=== PATIENT | female | born 1990 | race Caucasian/White ===

== ENCOUNTER 2020-02-02 19:48 | Emergency (ER) | payer SELFPAY ==
--- OUTSIDE RECORDS SUMMARY | 2020-02-02 19:52 | XMS REPORT ---
:1990 Author Organization [facility] t Address [address] [place] [address] Care Team Providers Name Role Phone Unavailable Unavailable Unavailable Payers Payer Name Policy Type Policy Number Effective Date Expiration Date S ource Problems This patient has no known problems. Allergies, Adverse Reactions, Alerts Allergy Allergy Status Severity Reaction(s) Onset Inactive Treating Comm ents Source Name Type Date Date Clinician iodine DA Active U 2020-0 [facility] cephalex DA Active U 2020-0 [facility] in 5[facility] No Known DA Active U 2020-0 [facility] All[facility]ie [facility] Medications This patient has no known medications. Procedures This patient has no known procedures. Results Test Description Test Time Test Comments Results Result Comments Source TROPONIN-I 2020-01-27 23:37:00 Test Item Value Reference Range Interpretation Comme nts TROPONIN-I (test code = TROPI) <0.015 ng/mL 0-0.045 N [id number] 20:28:00 Test Item Value Reference Range Interpretation Comments TROPONIN-I (test code = TROPI) <0.015 ng/mL 0-0.045 N [id number] 16:17:00 Test Item Value Reference Range Interpretation Comments TROPONIN-I (test code = TROPI) <0.015 ng/mL 0-0.045 N BASIC METABOLIC [id number] 06:51:00 Test Item Value Reference Range Interpretation Comments SODIUM (test code = 139 mmol/L 136-145 N NA) POTASSIUM (test code 3.6 mmol/L 3.5-5.1 N = K) CHLORIDE (test code = 110.0 mmol/L 98-107 H CL) CARBON DIOXIDE (test 21.0 mmol/L 21-32 N code = CO2) ANION GAP (test code 11.6 10-20 N = GAP) GLUCOSE (test code = 93 mg/dL 74-106 N GLU) BLOOD UREA NITROGEN 6 mg/dL 7-18 L (test code = BUN) GLOMERULAR FILTRATION > 60 mL/min >=60 Estima anne GFR by RATE (test code = using Yadi fied MDRD GFR) formula.Chronic kidney disease is defined as [facility] kidney damageor GFR <60 mL/min/1.73 m2 for >3 months. CREATININE (test code 0.70 mg/dL 0.55-1.02 N Note change in = CREAT) reference range due to change in reagent. BUN/CREATININE RATIO 8.1 10-20 L (test code = BUN/CREA) CALCIUM (test code = 9.1 mg/dL 8.5-10.1 N CA) BASIC METABOLIC [id number] 06:49:00 Test Item Value Reference Range Interpretation Comments SODIUM (test code = NA) 139 mmol/L 136-145 N POTASSIUM (test code = K) 3.6 mmol/L 3.5-5.1 N CHLORIDE (test code = CL) 110.0 mmol/L 98-107 H CARBON DIOXIDE (test code = CO2) mmol/L 21-32 ANION GAP (test code = GAP) 10-20 GLUCOSE (test code = GLU) mg/dL 74-106 BLOOD UREA NITROGEN (test code = mg/dL 7-18 BUN) GLOMERULAR FILTRATION RATE (test mL/min >=60 code = GFR) CREATININE (test code = CREAT) mg/dL 0.55-1.02 BUN/CREATININE RATIO (test code 10-20 = BUN/CREA) CALCIUM (test code = CA) mg/dL 8.5-10.1 CBC W/AUTO [id number] 06:15:00 Test Item Value Reference Range Interpretation Comments WHITE BLOOD CELL (test code = 7.2 K/mm3 4.5-12.5 N WBC) RED BLOOD CELL (test code = 4.21 mill/mm3 3.7-5.2 N RBC) HEMOGLOBIN (test code = HGB) 12.6 gram/dL 11.5-15.5 N HEMATOCRIT (test code = HCT) 37.4 % 36.0-46.0 N MEAN CELL VOLUME (test code = 88.8 fL 80-98 N MCV) MEAN CELL HGB (test code = MCH) 29.9 picogram 27.0-33.0 N MEAN CELL HGB CONCETRATION 33.7 gram/dL 33.0-36.0 N (test code = MCHC) RED CELL DISTRIBUTION WIDTH 13.2 % 11.6-16.2 N (test code = RDW) RED CELL DISTRIBUTION WIDTH SD 42.7 fL 37.0-51.0 N (test code = RDW-SD) PLATELET COUNT (test code = 203 K/mm3 150-450 N PLT) MEAN PLATELET VOLUME (test code 9.9 fL 6.7-11.0 N = MPV) NEUTROPHIL % (test code = NT%) 68.2 % 39.0-69.0 N IMMATURE GRANULOCYTE % (test 0.3 % 0.0-5.0 N code = IG%) LYMPHOCYTE % (test code = LY%) 22.2 % 25.0-55.0 L MONOCYTE % (test code = MO%) 8.2 % 0.0-10.0 N EOSINOPHIL % (test code = EO%) 1.0 % 0.0-5.0 N BASOPHIL % (test code = BA%) 0.1 % 0.0-1.0 N NUCLEATED RBC % (test code = 0.0 % 0-0 N NRBC%) NEUTROPHIL # (test code = NT#) 4.93 K/mm3 1.8-7.7 N IMMATURE GRANULOCYTE # (test 0.02 x10 3/uL 0-0.03 N code = IG#) LYMPHOCYTE # (test code = LY#) 1.60 K/mm3 1.0-5.0 N MONOCYTE # (test code = MO#) 0.59 K/mm3 0-0.8 N EOSINOPHIL # (test code = EO#) 0.07 K/mm3 0.0-0.5 N BASOPHIL # (test code = BA#) 0.01 K/mm3 0.0-0.2 N NUCLEATED RBC # (test code = 0.00 K/mm3 0.0-0.1 N NRBC#) CBC W/AUTO [id number] 05:59:00 Test Item Value Reference Range Interpretation Comments WHITE BLOOD CELL (test code = K/mm3 4.5-12.5 WBC) RED BLOOD CELL (test code = RBC) mill/mm3 3.7-5.2 HEMOGLOBIN (test code = HGB) 12.6 gram/dL 11.5-15.5 N HEMATOCRIT (test code = HCT) 37.4 % 36.0-46.0 N MEAN CELL VOLUME (test code = fL 80-98 MCV) MEAN CELL HGB (test code = MCH) picogram 27.0-33.0 MEAN CELL HGB CONCETRATION (test gram/dL 33.0-36.0 code = MCHC) RED CELL DISTRIBUTION WIDTH % 11.6-16.2 (test code = RDW) RED CELL DISTRIBUTION WIDTH SD fL 37.0-51.0 (test code = RDW-SD) PLATELET COUNT (test code = PLT) K/mm3 150-450 MEAN PLATELET VOLUME (test code fL 6.7-11.0 = MPV) NEUTROPHIL % (test code = NT%) % 39.0-69.0 IMMATURE GRANULOCYTE % (test % 0.0-5.0 code = IG%) LYMPHOCYTE % (test code = LY%) % 25.0-55.0 MONOCYTE % (test code = MO%) % 0.0-10.0 EOSINOPHIL % (test code = EO%) % 0.0-5.0 BASOPHIL % (test code = BA%) % 0.0-1.0 NEUTROPHIL # (test code = NT#) K/mm3 1.8-7.7 LYMPHOCYTE # (test code = LY#) K/mm3 1.0-5.0 MONOCYTE # (test code = MO#) K/mm3 0-0.8 EOSINOPHIL # (test code = EO#) K/mm3 0.0-0.5 BASOPHIL # (test code = BA#) K/mm3 0.0-0.2 - XR WRIST 2 VIEWS [id number] 16:30:00 FAX: Luis Daniel Pineda MD [phone] [place]: B St: ADM FAX: Antonino Schofield NP [phone] Name: ALEX MADRIGAL [facility] : 1990 Age/S: 29/F [address] Unit #: [id number] Loc: V.2065 [place] [address] Phys: Antonino Schofield NP Acct: Mary [id number] Dis Date: Status: ADM IN PHONE #: [phone] Exam Date: 01/26/2020 1551 FAX #: [phone] Reason: PAIN INRIGHT HAND/WRIST EXAMS: CPT CODE: [id number] XR WRIST [address] [place] [address] EXAM: Right wrist, 2 views and right hand, 2 views; INFORMATION: Pain; FINDINGS: Normal shape and structure of the imaged bones; no evidence of fracture or dislocation; no soft tissue abnormalities. IMPRESSION: No evidence of acute osseous trauma or other pathological changes. No radiopaque foreign body. Location code: [facility] at 1630 Reported and signed by: Oswaldo Mensah M.D. CC: Luis Daniel Pineda MD; Antonino Schofield NP Technologist: Enrique Dumont, RT(R; Carolina Lopez RT(R) Trnpard Date/Time/By: 01/26/2020 (163) : By: ChristGRW Orig Print D/T: S: 01/26/2020 (4083) PAGE 1 Signed Report- XR HAND 2 V [id number] 16:30:00 FAX: Luis Daniel Pineda MD [phone] [place]: St: [facility] FAX: Antonino Schofield NP [phone] Name: ALEX MADRIGAL [facility] : 1990 Age/S: 29/F [address] Unit #: [id number] Loc: V.2065 [place] [address] Phys: Antonino Schofield ENDOCRINOLOGY SPECIALIST Acct: V [id number] Dis Date: Status: ADM IN PHONE #: [phone] Exam Date: 01/26/2020 1547 FAX #: [phone] Reason: PAIN INRIGHT HAND/WRIST EXAMS: CPT CODE: [id number] XR HAND 2 [place] [address] EXAM: Right wrist, 2 views and right hand, 2 views; INFORMATION: Pain; FINDINGS: Normal shape and structure of the imaged bones; no evidence of fracture or dislocation; no soft tissue abnormalities. IMPRESSION: No evidence of acute osseous trauma or other pathological changes. No radiopaque foreign body. Location code: [facility] at 1630 Reported and signed by: Oswaldo Mensah M.D. CC: Luis Daniel Pineda MD; Antonino Schofield NP Technologist: Enrique Dumont, RT(R; Carolina Lopez RT(R) Trnscrd Date/Time/By: 01/26/2020 (602) : By: ChristGRW Orig Print D/T: S: 01/26/2020 (4508) PAGE 1 Signed [id number] 16:08:00 Test Item Value Reference Interpretation Comments Range LEVETIRACETAM 47.9 ug/mL 10.0-40.0 A This test was developed and (test code = its performance LEVTAM) characteristics determined by [facility]. It has not been cleared orappro óscar by the Food and Drug Administration. Performed At: [facility] [place] [id number] [facility] [place] [id number] ra Arnie MARTIN Ph:[phone] BASIC METABOLIC [id number] 07:52:00 Test Item Value Reference Range Interpretation Comments SODIUM (test code = NA) 140 mmol/L 136-145 N POTASSIUM (test code = K) 3.6 mmol/L 3.5-5.1 N CHLORIDE (test code = CL) 110.0 mmol/L 98-107 H CARBON DIOXIDE (test code = CO2) mmol/L 21-32 ANION GAP (test code = GAP) 10-20 GLUCOSE (test code = GLU) mg/dL 74-106 BLOOD UREA NITROGEN (test code = mg/dL 7-18 BUN) GLOMERULAR FILTRATION RATE (test mL/min >=60 code = GFR) CREATININE (test code = CREAT) mg/dL 0.55-1.02 BUN/CREATININE RATIO (test code 10-20 = BUN/CREA) CALCIUM (test code = CA) mg/dL 8.5-10.1 BASIC METABOLIC [id number] 07:52:00 Test Item Value Reference Range Interpretation Comments SODIUM (test code = 140 mmol/L 136-145 N NA) POTASSIUM (test code 3.6 mmol/L 3.5-5.1 N = K) CHLORIDE (test code = 110.0 mmol/L 98-107 H CL) CARBON DIOXIDE (test 23.0 mmol/L 21-32 N code = CO2) ANION GAP (test code 10.6 10-20 N = GAP) GLUCOSE (test code = 82 mg/dL 74-106 N GLU) BLOOD UREA NITROGEN 12 mg/dL 7-18 N (test code = BUN) GLOMERULAR FILTRATION > 60 mL/min >=60 Estima anne GFR by RATE (test code = using Yadi fied MDRD GFR) formula.Chronic kidney disease is defined as [facility] kidney damageor GFR <60 mL/min/1.73 m2 for >3 months. CREATININE (test code 0.90 mg/dL 0.55-1.02 N Note change in = CREAT) reference range due to change in reagent. BUN/CREATININE RATIO 13.9 10-20 N (test code = BUN/CREA) CALCIUM (test code = 9.0 mg/dL 8.5-10.1 N CA) CBC W/AUTO [id number] 07:35:00 Test Item Value Reference Range Interpretation Comments WHITE BLOOD CELL (test code = 7.9 K/mm3 4.5-12.5 N WBC) RED BLOOD CELL (test code = 4.13 mill/mm3 3.7-5.2 N RBC) HEMOGLOBIN (test code = HGB) 12.3 gram/dL 11.5-15.5 N HEMATOCRIT (test code = HCT) 37.3 % 36.0-46.0 N MEAN CELL VOLUME (test code = 90.3 fL 80-98 N MCV) MEAN CELL HGB (test code = MCH) 29.8 picogram 27.0-33.0 N MEAN CELL HGB CONCETRATION 33.0 gram/dL 33.0-36.0 N (test code = MCHC) RED CELL DISTRIBUTION WIDTH 13.1 % 11.6-16.2 N (test code = RDW) RED CELL DISTRIBUTION WIDTH SD 42.8 fL 37.0-51.0 N (test code = RDW-SD) PLATELET COUNT (test code = 210 K/mm3 150-450 N PLT) MEAN PLATELET VOLUME (test code 10.6 fL 6.7-11.0 N = MPV) NEUTROPHIL % (test code = NT%) 52.4 % 39.0-69.0 N IMMATURE GRANULOCYTE % (test 0.1 % 0.0-5.0 N code = IG%) LYMPHOCYTE % (test code = LY%) 37.3 % 25.0-55.0 N MONOCYTE % (test code = MO%) 8.5 % 0.0-10.0 N EOSINOPHIL % (test code = EO%) 1.4 % 0.0-5.0 N BASOPHIL % (test code = BA%) 0.3 % 0.0-1.0 N NUCLEATED RBC % (test code = 0.0 % 0-0 N NRBC%) NEUTROPHIL # (test code = NT#) 4.14 K/mm3 1.8-7.7 N IMMATURE GRANULOCYTE # (test 0.01 x10 3/uL 0-0.03 N code = IG#) LYMPHOCYTE # (test code = LY#) 2.95 K/mm3 1.0-5.0 N MONOCYTE # (test code = MO#) 0.67 K/mm3 0-0.8 N EOSINOPHIL # (test code = EO#) 0.11 K/mm3 0.0-0.5 N BASOPHIL # (test code = BA#) 0.02 K/mm3 0.0-0.2 N NUCLEATED RBC # (test code = 0.00 K/mm3 0.0-0.1 N NRBC#) MANUAL DIFF REQUIRED (test code NO = MDIFF) BASIC METABOLIC [id number] 05:23:00 Test Item Value Reference Range Interpretation Comments SODIUM (test code = 141 mmol/L 136-145 N NA) POTASSIUM (test code 3.8 mmol/L 3.5-5.1 N = K) CHLORIDE (test code = 108.0 mmol/L 98-107 H CL) CARBON DIOXIDE (test 25.0 mmol/L 21-32 N code = CO2) ANION GAP (test code 11.8 10-20 N = GAP) GLUCOSE (test code = 72 mg/dL 74-106 L GLU) BLOOD UREA NITROGEN 10 mg/dL 7-18 N (test code = BUN) GLOMERULAR FILTRATION > 60 mL/min >=60 Estima anne GFR by RATE (test code = using Yadi fied MDRD GFR) formula.Chronic kidney disease is defined as ei er kidney damageor GFR <60 mL/min/1.73 m2 for >3 months. CREATININE (test code 0.80 mg/dL 0.55-1.02 N Note change in = CREAT) reference range due to change in reagent. BUN/CREATININE RATIO 12.5 10-20 N (test code = BUN/CREA) CALCIUM (test code = 9.4 mg/dL 8.5-10.1 N CA) BASIC METABOLIC [id number] 05:15:00 Test Item Value Reference Range Interpretation Comments SODIUM (test code = NA) 141 mmol/L 136-145 N POTASSIUM (test code = K) 3.8 mmol/L 3.5-5.1 N CHLORIDE (test code = CL) 108.0 mmol/L 98-107 H CARBON DIOXIDE (test code = CO2) mmol/L 21-32 ANION GAP (test code = GAP) 10-20 GLUCOSE (test code = GLU) mg/dL 74-106 BLOOD UREA NITROGEN (test code = mg/dL 7-18 BUN) GLOMERULAR FILTRATION RATE (test mL/min >=60 code = GFR) CREATININE (test code = CREAT) mg/dL 0.55-1.02 BUN/CREATININE RATIO (test code 10-20 = BUN/CREA) CALCIUM (test code = CA) mg/dL 8.5-10.1 CBC W/AUTO [id number] 04:52:00 Test Item Value Reference Range Interpretation Comments WHITE BLOOD CELL (test code = 6.5 K/mm3 4.5-12.5 N WBC) RED BLOOD CELL (test code = 4.45 mill/mm3 3.7-5.2 N RBC) HEMOGLOBIN (test code = HGB) 13.3 gram/dL 11.5-15.5 N HEMATOCRIT (test code = HCT) 40.8 % 36.0-46.0 N MEAN CELL VOLUME (test code = 91.7 fL 80-98 N MCV) MEAN CELL HGB (test code = MCH) 29.9 picogram 27.0-33.0 N MEAN CELL HGB CONCETRATION 32.6 gram/dL 33.0-36.0 L (test code = MCHC) RED CELL DISTRIBUTION WIDTH 13.2 % 11.6-16.2 N (test code = RDW) RED CELL DISTRIBUTION WIDTH SD 44.8 fL 37.0-51.0 N (test code = RDW-SD) PLATELET COUNT (test code = 214 K/mm3 150-450 N PLT) MEAN PLATELET VOLUME (test code 9.9 fL 6.7-11.0 N = MPV) NEUTROPHIL % (test code = NT%) 47.0 % 39.0-69.0 N IMMATURE GRANULOCYTE % (test 0.2 % 0.0-5.0 N code = IG%) LYMPHOCYTE % (test code = LY%) 42.6 % 25.0-55.0 N MONOCYTE % (test code = MO%) 8.3 % 0.0-10.0 N EOSINOPHIL % (test code = EO%) 1.4 % 0.0-5.0 N BASOPHIL % (test code = BA%) 0.5 % 0.0-1.0 N NUCLEATED RBC % (test code = 0.0 % 0-0 N NRBC%) NEUTROPHIL # (test code = NT#) 3.05 K/mm3 1.8-7.7 N IMMATURE GRANULOCYTE # (test 0.01 x10 3/uL 0-0.03 N code = IG#) LYMPHOCYTE # (test code = LY#) 2.76 K/mm3 1.0-5.0 N MONOCYTE # (test code = MO#) 0.54 K/mm3 0-0.8 N EOSINOPHIL # (test code = EO#) 0.09 K/mm3 0.0-0.5 N BASOPHIL # (test code = BA#) 0.03 K/mm3 0.0-0.2 N NUCLEATED RBC # (test code = 0.00 K/mm3 0.0-0.1 N NRBC#) MANUAL DIFF REQUIRED (test code NO = MDIFF) CBC W/AUTO [id number] 04:42:00 Test Item Value Reference Range Interpretation Comments WHITE BLOOD CELL (test code = K/mm3 4.5-12.5 WBC) RED BLOOD CELL (test code = RBC) mill/mm3 3.7-5.2 HEMOGLOBIN (test code = HGB) 13.3 gram/dL 11.5-15.5 N HEMATOCRIT (test code = HCT) 40.8 % 36.0-46.0 N MEAN CELL VOLUME (test code = fL 80-98 MCV) MEAN CELL HGB (test code = MCH) picogram 27.0-33.0 MEAN CELL HGB CONCETRATION (test gram/dL 33.0-36.0 code = MCHC) RED CELL DISTRIBUTION WIDTH % 11.6-16.2 (test code = RDW) RED CELL DISTRIBUTION WIDTH SD fL 37.0-51.0 (test code = RDW-SD) PLATELET COUNT (test code = PLT) K/mm3 150-450 MEAN PLATELET VOLUME (test code fL 6.7-11.0 = MPV) NEUTROPHIL % (test code = NT%) % 39.0-69.0 IMMATURE GRANULOCYTE % (test % 0.0-5.0 code = IG%) LYMPHOCYTE % (test code = LY%) % 25.0-55.0 MONOCYTE % (test code = MO%) % 0.0-10.0 EOSINOPHIL % (test code = EO%) % 0.0-5.0 BASOPHIL % (test code = BA%) % 0.0-1.0 NEUTROPHIL # (test code = NT#) K/mm3 1.8-7.7 LYMPHOCYTE # (test code = LY#) K/mm3 1.0-5.0 MONOCYTE # (test code = MO#) K/mm3 0-0.8 EOSINOPHIL # (test code = EO#) K/mm3 0.0-0.5 BASOPHIL # (test code = BA#) K/mm3 0.0-0.2 - CT HEAD/BRAIN W/O [id number] 17:28:00 Name: ALEX MADRIGAL [facility] : 1990 Age/S: 29 / F [address] Unit #: [id number] Loc: [place] [address] Phys: Antonino Schofield ENDOCRINOLOGY SPECIALIST Acct: [id number] Dis Date: Status: ADM IN PHONE #: [phone] Exam Date: 01/24/2020 165 FAX #: [phone] Reason: S/P ROLLED OUT OF BED EXAMS: CPTCODE: [id number] CT HEAD/BRAIN W/O CONT [id number] EXAM: CT ofthe head without contrast; INFORMATION: Seizure; status post rolling out of bed; TECHNIQUE: CT dose reduction protocol; 2.5 mm axial scans; IMPRESSION: 1. No evidence of intracranial hemorrhage, acute territorial infarction, masslesions or midline shift. 2. No evidence of acute osseous trauma. 3. No change compared with yesterday's study. Location code: [facility] ElectronicallySigned by Linette Mensah on 01/24/2020 at 1728 Reported and signed by: Oswaldo Mensah M.D. CC: Luis Daniel Pineda MD; Antonino Schofield NP Technologist:Willi Briceno RT(R)(CT); . CTDI: DLP: Trnscb Da te/Time: 01/24/2020 (1728) [email or web address] Orig Print D/T: S: 01/24/2020 (8315) PAGE 1 Signed ReportDRUGS OF ABUSE SCREEN [id number] 13:25:00 Test Item Value Reference Range Interpretation Comments UA PH DIPSTICK (test 6.0 5.0-8.0 code = MAX) URN COCAINE (test NEGATIVE <300 ng/mL code = COCAURN) URN CANNABINOIDS POSITIVE <50 ng/mL A This test p rovides only a (test code = preliminary ame t result. CANNABURN) A morespecific alternate chemical method must be used in order t oobtain a confirmed darlin tical result. Gas chromatography/ mass spectrometry (G C/MS) is thepreferred co nfirmatory method. Other chemical confirmationmet hods are available. Cli nical consideration a nd professional ju dgment should be appli ed to any drug of abusete st result, particularly wh en preliminary pos itive resultsare used.Unconfirme d screening resul ts must not be used fornon-medical purposes (e.g., employme nt testing, legalt esting). URN AMPHETAMINE (test NEGATIVE <1000 ng/mL code = AMPHETURN) URN BARBITURATE (test POSITIVE <200 ng/mL A This t est provides only a code = BARBITURN) preliminar y test result. A morespecific alternate chemical method must be used in order t oobtain a confirmed darlin tical result. Gas chromatography/ mass spectrometry (G C/MS) is thepreferred co nfirmatory method. Other chemical confirmationmet hods are available. Cli nical consideration a nd professional ju dgment should be appli ed to any drug of abusete st result, particularly wh en preliminary pos itive resultsare used.Unconfirme d screening resul ts must not be used fornon-medical purposes (e.g., employme nt testing, legalt esting). URN BENZODIAZEPINE POSITIVE <200 ng/mL A This test provides only a (test code = preliminary ame t result. BENZOURN) A morespecific alternate chemical method must be used in order t oobtain a confirmed darlin tical result. Gas chromatography/ mass spectrometry (G C/MS) is thepreferred co nfirmatory method. Other chemical confirmationmet hods are available. Cli nical consideration a nd professional ju dgment should be appli ed to any drug of abusete st result, particularly wh en preliminary pos itive resultsare used.Unconfirme d screening resul ts must not be used fornon-medical purposes (e.g., employme nt testing, legalt esting). URN OPIATES (test NEGATIVE <300 ng/mL code = OPIATURN) URN PHENCYCLIDINE NEGATIVE <25 ng/mL (PCP) (test code = PHENCURN) URN METHADONE (test NEGATIVE <300 ng/mL code = METHAURN) DRUGS OF ABUSE SCREEN [id number] 13:00:00 Test Item Value Reference Range Interpretation Comments UA PH DIPSTICK (test code = MAX) 6.0 5.0-8.0 URN COCAINE (test code = COCAURN) <300 ng/mL URN CANNABINOIDS (test code = <50 ng/mL CANNABURN) URN AMPHETAMINE (test code = AMPHETURN) <1000 ng/mL URN BARBITURATE (test code = BARBITURN) <200 ng/mL URN BENZODIAZEPINE (test code = <200 ng/mL BENZOURN) URN OPIATES (test code = OPIATURN) <300 ng/mL URN PHENCYCLIDINE (PCP) (test code = <25 ng/mL PHENCURN) URN METHADONE (test code = METHAURN) <300 ng/mL BASIC METABOLIC [id number] 07:55:00 Test Item Value Reference Range Interpretation Comments SODIUM (test code = 140 mmol/L 136-145 N NA) POTASSIUM (test code 3.8 mmol/L 3.5-5.1 N = K) CHLORIDE (test code = 107.0 mmol/L 98-107 N CL) CARBON DIOXIDE (test 25.0 mmol/L 21-32 N code = CO2) ANION GAP (test code 11.8 10-20 N = GAP) GLUCOSE (test code = 76 mg/dL 74-106 N GLU) BLOOD UREA NITROGEN 9 mg/dL 7-18 N (test code = BUN) GLOMERULAR FILTRATION > 60 mL/min >=60 Estima anne GFR by RATE (test code = using Yadi fied MDRD GFR) formula.Chronic kidney disease is defined as [facility] kidney damageor GFR <60 mL/min/1.73 m2 for >3 months. CREATININE (test code 0.80 mg/dL 0.55-1.02 N Note change in = CREAT) reference range due to change in reagent. BUN/CREATININE RATIO 11.3 10-20 N (test code = BUN/CREA) CALCIUM (test code = 9.2 mg/dL 8.5-10.1 N CA) UR HCG [id number] 07:30:00 Test Item Value Reference Range Interpretation Comments UR HCG QUAL (test NEGATIVE This HCGQL test is NOT code = HCGQLU) applicable fo r MALE patients.Check with nurse about probable order error.If Tumor Marker Test needed, nu rse should order test "HCG TU"(Test #[id number])---- - CBC W/AUTO [id number] 07:11:00 Test Item Value Reference Range Interpretation Comments WHITE BLOOD CELL (test code = 7.6 K/mm3 4.5-12.5 N WBC) RED BLOOD CELL (test code = 4.21 mill/mm3 3.7-5.2 N RBC) HEMOGLOBIN (test code = HGB) 12.6 gram/dL 11.5-15.5 N HEMATOCRIT (test code = HCT) 38.3 % 36.0-46.0 N MEAN CELL VOLUME (test code = 91.0 fL 80-98 N MCV) MEAN CELL HGB (test code = MCH) 29.9 picogram 27.0-33.0 N MEAN CELL HGB CONCETRATION 32.9 gram/dL 33.0-36.0 L (test code = MCHC) RED CELL DISTRIBUTION WIDTH 13.2 % 11.6-16.2 N (test code = RDW) RED CELL DISTRIBUTION WIDTH SD 43.6 fL 37.0-51.0 N (test code = RDW-SD) PLATELET COUNT (test code = 205 K/mm3 150-450 N PLT) MEAN PLATELET VOLUME (test code 9.8 fL 6.7-11.0 N = MPV) NEUTROPHIL % (test code = NT%) 55.9 % 39.0-69.0 N IMMATURE GRANULOCYTE % (test 0.3 % 0.0-5.0 N code = IG%) LYMPHOCYTE % (test code = LY%) 33.6 % 25.0-55.0 N MONOCYTE % (test code = MO%) 8.6 % 0.0-10.0 N EOSINOPHIL % (test code = EO%) 1.1 % 0.0-5.0 N BASOPHIL % (test code = BA%) 0.5 % 0.0-1.0 N NUCLEATED RBC % (test code = 0.0 % 0-0 N NRBC%) NEUTROPHIL # (test code = NT#) 4.24 K/mm3 1.8-7.7 N IMMATURE GRANULOCYTE # (test 0.02 x10 3/uL 0-0.03 N code = IG#) LYMPHOCYTE # (test code = LY#) 2.55 K/mm3 1.0-5.0 N MONOCYTE # (test code = MO#) 0.65 K/mm3 0-0.8 N EOSINOPHIL # (test code = EO#) 0.08 K/mm3 0.0-0.5 N BASOPHIL # (test code = BA#) 0.04 K/mm3 0.0-0.2 N NUCLEATED RBC # (test code = 0.00 K/mm3 0.0-0.1 N NRBC#) AB [id number] 02:27:00 Test Item Value Reference Range Interpretation Comments AB TREPONEMA (test code = Nonreactive Index NonReactive TREPAB) [id number] 02:24:00 Test Item Value Reference Range Interpretation Comments PHOSPHORUS (test code = PHOS) 2.8 mg/dL 2.5-4.9 N [id number] 02:24:00 Test Item Value Reference Range Interpretation Comments MAGNESIUM (test code = MAG) 2.1 mg/dL 1.8-2.4 N VITAMIN [id number] 02:24:00 Test Item Value Reference Range Interpretation Comments VITAMIN B12 (test code = VITB12) 274 pg/mL 193-986 N FOLIC [id number] 02:24:00 Test Item Value Reference Range Interpretation Comments FOLIC ACID (test code = FOL) 18.3 ng/mL 3.10-17.50 H [id number] 02:24:00 Test Item Value Reference Range Interpretation Comments ALCOHOL (test code < 3 mg/dL 0.0-3.0 N --------- --------INTERPRE = ALC) TIVE DATA NOTE: POSITIVE SCREEN ING RESULTS SHOULD BE CONSIDERED PRESUMPTIVE.WHE N COLLECTED FOR M EDICAL PURPOSES ONLY. SPECIMEN WILL NOTBE VALENTÍN ECTED BY CHAIN OF CUSTOD Y.IF A CONFIRMATION OF POSITIVE RESULTS IS DONAVAN RED, ACONFIRMATION T EST MUST BE REQUESTED BY THE PHYSICIAN AT AN ADDITIONAL CHARGE TO [facility]. [id number] 02:18:00 Test Item Value Reference Range Interpretation Comments PHOSPHORUS (test code = PHOS) 2.8 mg/dL 2.5-4.9 N [id number] 02:18:00 Test Item Value Reference Range Interpretation Comments MAGNESIUM (test code = MAG) 2.1 mg/dL 1.8-2.4 N VITAMIN [id number] 02:18:00 Test Item Value Reference Range Interpretation Comments VITAMIN B12 (test code = VITB12) pg/mL 193-986 FOLIC [id number] 02:18:00 Test Item Value Reference Range Interpretation Comments FOLIC ACID (test code = FOL) 18.3 ng/mL 3.10-17.50 H [id number] 02:18:00 Test Item Value Reference Range Interpretation Comments ALCOHOL (test code = ALC) mg/dL 0-3 [id number] 02:00:00 Test Item Value Reference Range Interpretation Comments AMMONIA (test code = AMM) < 10 umol/L 11-32 L PROTHROMBIN [id number] 01:43:00 Test Item Value Reference Range Interpretation Comments PROTHROMBIN TIME 13.1 seconds 9.0-14.0 N PATIENT (test code = PTP) INTERNATIONAL NORMAL 1.1 0.8-1.2 N The the rapeutic range RATIO (test code = for oral INR) anticoagulant t herapy formost indicat ions is an internati onal normalized rati o (INR)of between 2.0 and 3.0. The recommended therapeutic INR range for various cli nical situations is l isted below: Clinical Situat ion INR range Pulmonary embol ism treatment (2.0-3.0)Venou s thrombosis treatmentVenous thrombosis prophylaxis (hi gh risk surgery)Prevent ion of systemic emboli sm from: A cute myocardial infa rction Valvula r heart disease Atrial fibrilla tion Mechanical pros thetic heart valves (2.5-3.5) IS PATIENT ON ANTICOAGULANTS? N- CT HEAD/BRAIN W/O [id number] 21:58:00 Name: ALEX MADRIGAL [facility] : 1990 Age/S: 29 / F [address] [facility] Unit #: [id number] Loc: [place] [address] Phys: Haroon Moise MD Acct: [id number] Dis Date: Status: REG ER PHONE #: [phone] Exam Date: 01/23/20202155 FAX #: [phone] Reason: seizure EXAMS: CPTCODE: [id number] CT HEAD/BRAIN W/O CONT [id number] HEAD WITHOUT CONTRAST HISTORY: seizure TECHNIQUE: Axial CT images from the skull base to the vertex without intravenous contrast. One or more ofthe following dose reduction techniques were used: Automated exposure control, adjustment of the mA and/or kV according to patient size, and/or iterative reconstruction. COMPARISON: None FINDINGS: No abnormal brain parenchymal density. No evidence of acute infarction, intracranial hemorrhage, mass or mass effect, or abnormal extra-axial fluid collection. The ventricles are normal in size, shape and position. The density in the larger dural sinuses is grossly normal. The osseous structures and orbits have no significant abnormalities. The visualized paranasal sinuses and mastoid air cells are predominantly clear. IMPRESSION: No acute intracranial abnormality. at 2158 Reported and signed by: Diaz Clemente MD CC: Haroon Moise MD Technologist:Hesham Vu, RT(R)(CT) CTDI: DLP: Trnscb Date/Time: 01/23/2020 (2157) [id number] Orig Print D/T: S: 01/23/2020 (2201) PAGE 1 Signed ReportBASIC METABOLIC [id number] 21:26:00 Test Item Value Reference Range Interpretation Comments SODIUM (test code = NA) 139 mmol/L 136-145 N POTASSIUM (test code = K) 3.8 mmol/L 3.5-5.1 N CHLORIDE (test code = CL) 106.0 mmol/L 98-107 N CARBON DIOXIDE (test code = CO2) mmol/L 21-32 ANION GAP (test code = GAP) 10-20 GLUCOSE (test code = GLU) mg/dL 74-106 BLOOD UREA NITROGEN (test code = mg/dL 7-18 BUN) GLOMERULAR FILTRATION RATE (test mL/min >=60 code = GFR) CREATININE (test code = CREAT) mg/dL 0.55-1.02 BUN/CREATININE RATIO (test code 10-20 = BUN/CREA) CALCIUM (test code = CA) mg/dL 8.5-10.1 HCG SERUM [id number] 21:26:00 Test Item Value Reference Range Interpretation Comments HCG SERUM QUAL (test NEGATIVE NEGATIVE This HC GQL test is NOT code = HCGQL) applicable for MALE patients.Check with nurse about probable order error.If Tumor Marker Test needed, nu rse should order test "HCG TU"(Test #550.28192)---- - BASIC METABOLIC [id number] 21:26:00 Test Item Value Reference Range Interpretation Comments SODIUM (test code = 139 mmol/L 136-145 N NA) POTASSIUM (test code 3.8 mmol/L 3.5-5.1 N = K) CHLORIDE (test code = 106.0 mmol/L 98-107 N CL) CARBON DIOXIDE (test 25.0 mmol/L 21-32 N code = CO2) ANION GAP (test code 11.8 10-20 N = GAP) GLUCOSE (test code = 84 mg/dL 74-106 N GLU) BLOOD UREA NITROGEN 10 mg/dL 7-18 N (test code = BUN) GLOMERULAR FILTRATION > 60 mL/min >=60 Estima anne GFR by RATE (test code = using Yadi fied MDRD GFR) formula.Chronic kidney disease is defined as eith er kidney damageor GFR <60 mL/min/1.73 m2 for >3 months. CREATININE (test code 0.90 mg/dL 0.55-1.02 N Note change in = CREAT) reference range due to change in reagent. BUN/CREATININE RATIO 11.1 10-20 N (test code = BUN/CREA) CALCIUM (test code = 9.3 mg/dL 8.5-10.1 N CA) HCG SERUM [id number] 21:26:00 Test Item Value Reference Range Interpretation Comments HCG SERUM QUAL (test NEGATIVE NEGATIVE This HC GQL test is NOT code = HCGQL) applicable for MALE patients.Check with nurse about probable order error.If Tumor Marker Test needed, nu rse should order test "HCG TU"(Test #550.69011)---- - BASIC METABOLIC [id number] 21:25:00 Test Item Value Reference Range Interpretation Comments SODIUM (test code = NA) 139 mmol/L 136-145 N POTASSIUM (test code = K) 3.8 mmol/L 3.5-5.1 N CHLORIDE (test code = CL) 106.0 mmol/L 98-107 N CARBON DIOXIDE (test code = CO2) mmol/L 21-32 ANION GAP (test code = GAP) 10-20 GLUCOSE (test code = GLU) mg/dL 74-106 BLOOD UREA NITROGEN (test code = mg/dL 7-18 BUN) GLOMERULAR FILTRATION RATE (test mL/min >=60 code = GFR) CREATININE (test code = CREAT) mg/dL 0.55-1.02 BUN/CREATININE RATIO (test code 10-20 = BUN/CREA) CALCIUM (test code = CA) mg/dL 8.5-10.1 HCG SERUM [id number] 21:25:00 Test Item Value Reference Range Interpretation Comments HCG SERUM QUAL (test code = HCGQL) NEGATIVE CBC W/O [id number] 21:17:00 Test Item Value Reference Range Interpretation Comments WHITE BLOOD CELL (test code = K/mm3 4.5-12.5 WBC) RED BLOOD CELL (test code = RBC) mill/mm3 3.7-5.2 HEMOGLOBIN (test code = HGB) 12.6 gram/dL 11.5-15.5 N HEMATOCRIT (test code = HCT) 38.2 % 36.0-46.0 N MEAN CELL VOLUME (test code = fL 80-98 MCV) MEAN CELL HGB (test code = MCH) picogram 27.0-33.0 MEAN CELL HGB CONCETRATION (test gram/dL 33.0-36.0 code = MCHC) RED CELL DISTRIBUTION WIDTH % 11.6-16.2 (test code = RDW) PLATELET COUNT (test code = PLT) K/mm3 150-450 MEAN PLATELET VOLUME (test code fL 6.7-11.0 = MPV) CBC W/O [id number] 21:17:00 Test Item Value Reference Range Interpretation Comments WHITE BLOOD CELL (test code = 9.1 K/mm3 4.5-12.5 N WBC) RED BLOOD CELL (test code = 4.25 mill/mm3 3.7-5.2 N RBC) HEMOGLOBIN (test code = HGB) 12.6 gram/dL 11.5-15.5 N HEMATOCRIT (test code = HCT) 38.2 % 36.0-46.0 N MEAN CELL VOLUME (test code = 89.9 fL 80-98 N MCV) MEAN CELL HGB (test code = MCH) 29.6 picogram 27.0-33.0 N MEAN CELL HGB CONCETRATION 33.0 gram/dL 33.0-36.0 N (test code = MCHC) RED CELL DISTRIBUTION WIDTH 13.2 % 11.6-16.2 N (test code = RDW) PLATELET COUNT (test code = 235 K/mm3 150-450 N PLT) MEAN PLATELET VOLUME (test code 9.7 fL 6.7-11.0 N = MPV) BASIC METABOLIC [id number] 21:38:00 Test Item Value Reference Range Interpretation Comments SODIUM (test code = 138 mmol/L 136-145 N NA) POTASSIUM (test code 3.9 mmol/L 3.5-5.1 N = K) CHLORIDE (test code = 105.0 mmol/L 98-107 N CL) CARBON DIOXIDE (test 26.0 mmol/L 21-32 N code = CO2) ANION GAP (test code 10.9 10-20 N = GAP) GLUCOSE (test code = 86 mg/dL 74-106 N GLU) BLOOD UREA NITROGEN 14 mg/dL 7-18 N (test code = BUN) GLOMERULAR FILTRATION > 60 mL/min >=60 Estima anne GFR by RATE (test code = using Yadi fied MDRD GFR) formula.Chronic kidney disease is defined as eith er kidney damageor GFR <60 mL/min/1.73 m2 for >3 months. CREATININE (test code 1.00 mg/dL 0.55-1.02 N Note change in = CREAT) reference range due to change in reagent. BUN/CREATININE RATIO 14.0 10-20 N (test code = BUN/CREA) CALCIUM (test code = 9.6 mg/dL 8.5-10.1 N CA) HEPATIC FUNCTION [id number] 21:38:00 Test Item Value Reference Range Interpretation Comments TOTAL PROTEIN (test 8.4 gram/dL 6.4-8.2 H code = PROT) ALBUMIN (test code = 4.1 g/dL 3.4-5.0 N ALB) GLOBULIN (test code = 4.3 gram/dL 2.7-4.2 H GLOB) ALBUMIN/GLOBULIN RATIO 1.0 0.75-1.50 N (test code = A/G) BILIRUBIN TOTAL (test 0.70 mg/dL 0.0-1.0 N code = BILT) BILIRUBIN DIRECT (test 0.20 mg/dL 0.0-0.20 N code = BILD) SGOT/AST (test code = 24 IUnit/L 15-37 N AST) SGPT/ALT (test code = 48 IUnit/L 12-78 N ALT) ALKALINE PHOSPHATASE 88 IUnit/L 45-117 N Note change in TOTAL (test code = reference range due ALKP) to change in reagent. [id number] 21:38:00 Test Item Value Reference Range Interpretation Comments LIPASE (test code = LIP) 140 U/L 73.0-393.0 N HCG SERUM [id number] 21:38:00 Test Item Value Reference Range Interpretation Comments HCG SERUM QUAL (test NEGATIVE NEGATIVE This HC GQL test is NOT code = HCGQL) applicable for MALE patients.Check with nurse about probable order error.If Tumor Marker Test needed, nu rse should order test "HCG TU"(Test #550.05350)---- - [id number] 21:38:00 Test Item Value Reference Range Interpretation Comments ALCOHOL (test code < 3 mg/dL 0.0-3.0 N --------- --------INTERPRE = ALC) TIVE DATA NOTE: POSITIVE SCREEN ING RESULTS SHOULD BE CONSIDERED PRESUMPTIVE.WHE N COLLECTED FOR M EDICAL PURPOSES ONLY. SPECIMEN WILL NOTBE VALENTÍN ECTED BY CHAIN OF CUSTOD Y.IF A CONFIRMATION OF POSITIVE RESULTS IS DONAVAN RED, ACONFIRMATION T EST MUST BE REQUESTED BY THE PHYSICIAN AT AN ADDITIONAL [facility] BASIC METABOLIC [id number] 21:35:00 Test Item Value Reference Range Interpretation Comments SODIUM (test code = NA) 138 mmol/L 136-145 N POTASSIUM (test code = K) 3.9 mmol/L 3.5-5.1 N CHLORIDE (test code = CL) 105.0 mmol/L 98-107 N CARBON DIOXIDE (test code = CO2) mmol/L 21-32 ANION GAP (test code = GAP) 10-20 GLUCOSE (test code = GLU) mg/dL 74-106 BLOOD UREA NITROGEN (test code = mg/dL 7-18 BUN) GLOMERULAR FILTRATION RATE (test mL/min >=60 code = GFR) CREATININE (test code = CREAT) mg/dL 0.55-1.02 BUN/CREATININE RATIO (test code 10-20 = BUN/CREA) CALCIUM (test code = CA) mg/dL 8.5-10.1 HEPATIC FUNCTION [id number] 21:35:00 Test Item Value Reference Range Interpretation Comments TOTAL PROTEIN (test code = PROT) gram/dL 6.4-8.2 ALBUMIN (test code = ALB) g/dL 3.4-5.0 GLOBULIN (test code = GLOB) gram/dL 2.7-4.2 ALBUMIN/GLOBULIN RATIO (test code = 0.75-1.50 A/G) BILIRUBIN TOTAL (test code = BILT) mg/dL 0.0-1.0 BILIRUBIN DIRECT (test code = BILD) mg/dL 0.0-0.20 SGOT/AST (test code = AST) IUnit/L 15-37 SGPT/ALT (test code = ALT) IUnit/L 12-78 ALKALINE PHOSPHATASE TOTAL (test IUnit/L 45-117 code = ALKP) [id number] 21:35:00 Test Item Value Reference Range Interpretation Comments LIPASE (test code = LIP) U/L 73.0-393.0 HCG SERUM [id number] 21:35:00 Test Item Value Reference Range Interpretation Comments HCG SERUM QUAL (test NEGATIVE NEGATIVE This HC GQL test is NOT code = HCGQL) applicable for MALE patients.Check with nurse about probable order error.If Tumor Marker Test needed, nu rse should order test "HCG TU"(Test #550.02437)---- - [id number] 21:35:00 Test Item Value Reference Range Interpretation Comments ALCOHOL (test code = ALC) mg/dL 0-3 BASIC METABOLIC [id number] 21:30:00 Test Item Value Reference Range Interpretation Comments SODIUM (test code = NA) 138 mmol/L 136-145 N POTASSIUM (test code = K) 3.9 mmol/L 3.5-5.1 N CHLORIDE (test code = CL) 105.0 mmol/L 98-107 N CARBON DIOXIDE (test code = CO2) mmol/L 21-32 ANION GAP (test code = GAP) 10-20 GLUCOSE (test code = GLU) mg/dL 74-106 BLOOD UREA NITROGEN (test code = mg/dL 7-18 BUN) GLOMERULAR FILTRATION RATE (test mL/min >=60 code = GFR) CREATININE (test code = CREAT) mg/dL 0.55-1.02 BUN/CREATININE RATIO (test code 10-20 = BUN/CREA) CALCIUM (test code = CA) mg/dL 8.5-10.1 HEPATIC FUNCTION [id number] 21:30:00 Test Item Value Reference Range Interpretation Comments TOTAL PROTEIN (test code = PROT) gram/dL 6.4-8.2 ALBUMIN (test code = ALB) g/dL 3.4-5.0 GLOBULIN (test code = GLOB) gram/dL 2.7-4.2 ALBUMIN/GLOBULIN RATIO (test code = 0.75-1.50 A/G) BILIRUBIN TOTAL (test code = BILT) mg/dL 0.0-1.0 BILIRUBIN DIRECT (test code = BILD) mg/dL 0.0-0.20 SGOT/AST (test code = AST) IUnit/L 15-37 SGPT/ALT (test code = ALT) IUnit/L 12-78 ALKALINE PHOSPHATASE TOTAL (test IUnit/L 45-117 code = ALKP) [id number] 21:30:00 Test Item Value Reference Range Interpretation Comments LIPASE (test code = LIP) U/L 73.0-393.0 HCG SERUM [id number] 21:30:00 Test Item Value Reference Range Interpretation Comments HCG SERUM QUAL (test code = HCGQL) NEGATIVE [id number] 21:30:00 Test Item Value Reference Range Interpretation Comments ALCOHOL (test code = ALC) mg/dL 0-3 CBC W/O [id number] 21:24:00 Test Item Value Reference Range Interpretation Comments WHITE BLOOD CELL (test code = 7.6 K/mm3 4.5-12.5 N WBC) RED BLOOD CELL (test code = 4.50 mill/mm3 3.7-5.2 N RBC) HEMOGLOBIN (test code = HGB) 13.4 gram/dL 11.5-15.5 N HEMATOCRIT (test code = HCT) 40.3 % 36.0-46.0 N MEAN CELL VOLUME (test code = 89.6 fL 80-98 N MCV) MEAN CELL HGB (test code = MCH) 29.8 picogram 27.0-33.0 N MEAN CELL HGB CONCETRATION 33.3 gram/dL 33.0-36.0 N (test code = MCHC) RED CELL DISTRIBUTION WIDTH 13.3 % 11.6-16.2 N (test code = RDW) PLATELET COUNT (test code = 254 K/mm3 150-450 N PLT) MEAN PLATELET VOLUME (test code 9.7 fL 6.7-11.0 N = MPV) CBC W/O [id number] 21:19:00 Test Item Value Reference Range Interpretation Comments WHITE BLOOD CELL (test code = K/mm3 4.5-12.5 WBC) RED BLOOD CELL (test code = RBC) mill/mm3 3.7-5.2 HEMOGLOBIN (test code = HGB) 13.4 gram/dL 11.5-15.5 N HEMATOCRIT (test code = HCT) 40.3 % 36.0-46.0 N MEAN CELL VOLUME (test code = fL 80-98 MCV) MEAN CELL HGB (test code = MCH) picogram 27.0-33.0 MEAN CELL HGB CONCETRATION (test gram/dL 33.0-36.0 code = MCHC) RED CELL DISTRIBUTION WIDTH % 11.6-16.2 (test code = RDW) PLATELET COUNT (test code = PLT) K/mm3 150-450 MEAN PLATELET VOLUME (test code fL 6.7-11.0 = MPV) BASIC METABOLIC [id number] 14:44:00 Test Item Value Reference Range Interpretation Comments SODIUM (test code = 140 mmol/L 136-145 N NA) POTASSIUM (test code 4.0 mmol/L 3.5-5.1 N = K) CHLORIDE (test code = 106.0 mmol/L 98-107 N CL) CARBON DIOXIDE (test 28.0 mmol/L 21-32 N code = CO2) ANION GAP (test code 10.0 10-20 N = GAP) GLUCOSE (test code = 83 mg/dL 74-106 N GLU) BLOOD UREA NITROGEN 12 mg/dL 7-18 N (test code = BUN) GLOMERULAR FILTRATION > 60 mL/min >=60 Estima anne GFR by RATE (test code = using Yadi fied MDRD GFR) formula.Chronic kidney disease is defined as [facility] kidney damageor GFR <60 mL/min/1.73 m2 for >3 months. CREATININE (test code 0.90 mg/dL 0.55-1.02 N Note change in = CREAT) reference range due to change in reagent. BUN/CREATININE RATIO 13.3 10-20 N (test code = BUN/CREA) CALCIUM (test code = 9.6 mg/dL 8.5-10.1 N CA) HEPATIC FUNCTION [id number] 14:44:00 Test Item Value Reference Range Interpretation Comments TOTAL PROTEIN (test 8.2 gram/dL 6.4-8.2 N code = PROT) ALBUMIN (test code = 4.2 g/dL 3.4-5.0 N ALB) GLOBULIN (test code = 4.0 gram/dL 2.7-4.2 N GLOB) ALBUMIN/GLOBULIN RATIO 1.1 0.75-1.50 N (test code = A/G) BILIRUBIN TOTAL (test 0.70 mg/dL 0.0-1.0 N code = BILT) BILIRUBIN DIRECT (test 0.22 mg/dL 0.0-0.20 H code = BILD) SGOT/AST (test code = 24 IUnit/L 15-37 N AST) SGPT/ALT (test code = 46 IUnit/L 12-78 N ALT) ALKALINE PHOSPHATASE 94 IUnit/L 45-117 N Note change in TOTAL (test code = reference range due ALKP) to change in reagent. [id number] 14:44:00 Test Item Value Reference Range Interpretation Comments LIPASE (test code = LIP) 101 U/L 73.0-393.0 N HCG SERUM [id number] 14:44:00 Test Item Value Reference Range Interpretation Comments HCG SERUM QUAL (test NEGATIVE NEGATIVE This HC GQL test is NOT code = HCGQL) applicable for MALE patients.Check with nurse about probable order error.If Tumor Marker Test needed, nu rse should order test "HCG TU"(Test #550.49684)---- - [id number] 14:44:00 Test Item Value Reference Range Interpretation Comments TROPONIN-I (test code = TROPI) <0.015 ng/mL 0-0.045 N [id number] 14:44:00 Test Item Value Reference Range Interpretation Comments ALCOHOL (test code < 3 mg/dL 0.0-3.0 N --------- --------INTERPRE = ALC) TIVE DATA NOTE: POSITIVE SCREEN ING RESULTS SHOULD BE CONSIDERED PRESUMPTIVE.WHE N COLLECTED FOR M EDICAL PURPOSES ONLY. SPECIMEN WILL NOTBE VALENTÍN ECTED BY CHAIN OF CUSTOD Y.IF A CONFIRMATION OF POSITIVE RESULTS IS DONAVAN RED, ACONFIRMATION T EST MUST BE REQUESTED BY THE PHYSICIAN AT AN ADDITIONAL CHARGE TO THE P ATIENT. BASIC METABOLIC [id number] 14:37:00 Test Item Value Reference Range Interpretation Comments SODIUM (test code = NA) 140 mmol/L 136-145 N POTASSIUM (test code = K) 4.0 mmol/L 3.5-5.1 N CHLORIDE (test code = CL) 106.0 mmol/L 98-107 N CARBON DIOXIDE (test code = CO2) mmol/L 21-32 ANION GAP (test code = GAP) 10-20 GLUCOSE (test code = GLU) mg/dL 74-106 BLOOD UREA NITROGEN (test code = mg/dL 7-18 BUN) GLOMERULAR FILTRATION RATE (test mL/min >=60 code = GFR) CREATININE (test code = CREAT) mg/dL 0.55-1.02 BUN/CREATININE RATIO (test code 10-20 = BUN/CREA) CALCIUM (test code = CA) mg/dL 8.5-10.1 HEPATIC FUNCTION [id number] 14:37:00 Test Item Value Reference Range Interpretation Comments TOTAL PROTEIN (test code = PROT) gram/dL 6.4-8.2 ALBUMIN (test code = ALB) g/dL 3.4-5.0 GLOBULIN (test code = GLOB) gram/dL 2.7-4.2 ALBUMIN/GLOBULIN RATIO (test code = 0.75-1.50 A/G) BILIRUBIN TOTAL (test code = BILT) mg/dL 0.0-1.0 BILIRUBIN DIRECT (test code = BILD) mg/dL 0.0-0.20 SGOT/AST (test code = AST) IUnit/L 15-37 SGPT/ALT (test code = ALT) IUnit/L 12-78 ALKALINE PHOSPHATASE TOTAL (test IUnit/L 45-117 code = ALKP) [id number] 14:37:00 Test Item Value Reference Range Interpretation Comments LIPASE (test code = LIP) U/L 73.0-393.0 HCG SERUM [id number] 14:37:00 Test Item Value Reference Range Interpretation Comments HCG SERUM QUAL (test NEGATIVE NEGATIVE This HC GQL test is NOT code = HCGQL) applicable for MALE patients.Check with nurse about probable order error.If Tumor Marker Test needed, nu rse should order test "HCG TU"(Test #550.65140)---- - [id number] 14:37:00 Test Item Value Reference Range Interpretation Comments TROPONIN-I (test code = TROPI) ng/mL 0-0.045 [id number] 14:37:00 Test Item Value Reference Range Interpretation Comments ALCOHOL (test code = ALC) mg/dL 0-3 BASIC METABOLIC [id number] 14:36:00 Test Item Value Reference Range Interpretation Comments SODIUM (test code = NA) 140 mmol/L 136-145 N POTASSIUM (test code = K) 4.0 mmol/L 3.5-5.1 N CHLORIDE (test code = CL) 106.0 mmol/L 98-107 N CARBON DIOXIDE (test code = CO2) mmol/L 21-32 ANION GAP (test code = GAP) 10-20 GLUCOSE (test code = GLU) mg/dL 74-106 BLOOD UREA NITROGEN (test code = mg/dL 7-18 BUN) GLOMERULAR FILTRATION RATE (test mL/min >=60 code = GFR) CREATININE (test code = CREAT) mg/dL 0.55-1.02 BUN/CREATININE RATIO (test code 10-20 = BUN/CREA) CALCIUM (test code = CA) mg/dL 8.5-10.1 HEPATIC FUNCTION [id number] 14:36:00 Test Item Value Reference Range Interpretation Comments TOTAL PROTEIN (test code = PROT) gram/dL 6.4-8.2 ALBUMIN (test code = ALB) g/dL 3.4-5.0 GLOBULIN (test code = GLOB) gram/dL 2.7-4.2 ALBUMIN/GLOBULIN RATIO (test code = 0.75-1.50 A/G) BILIRUBIN TOTAL (test code = BILT) mg/dL 0.0-1.0 BILIRUBIN DIRECT (test code = BILD) mg/dL 0.0-0.20 SGOT/AST (test code = AST) IUnit/L 15-37 SGPT/ALT (test code = ALT) IUnit/L 12-78 ALKALINE PHOSPHATASE TOTAL (test IUnit/L 45-117 code = ALKP) [id number] 14:36:00 Test Item Value Reference Range Interpretation Comments LIPASE (test code = LIP) U/L 73.0-393.0 HCG SERUM [id number] 14:36:00 Test Item Value Reference Range Interpretation Comments HCG SERUM QUAL (test code = HCGQL) NEGATIVE [id number] 14:36:00 Test Item Value Reference Range Interpretation Comments TROPONIN-I (test code = TROPI) ng/mL 0-0.045 [id number] 14:36:00 Test Item Value Reference Range Interpretation Comments ALCOHOL (test code = ALC) mg/dL 0-3 CBC W/O [id number] 14:24:00 Test Item Value Reference Range Interpretation Comments WHITE BLOOD CELL (test code = 6.7 K/mm3 4.5-12.5 N WBC) RED BLOOD CELL (test code = 4.55 mill/mm3 3.7-5.2 N RBC) HEMOGLOBIN (test code = HGB) 13.7 gram/dL 11.5-15.5 N HEMATOCRIT (test code = HCT) 41.1 % 36.0-46.0 N MEAN CELL VOLUME (test code = 90.3 fL 80-98 N MCV) MEAN CELL HGB (test code = MCH) 30.1 picogram 27.0-33.0 N MEAN CELL HGB CONCETRATION 33.3 gram/dL 33.0-36.0 N (test code = MCHC) RED CELL DISTRIBUTION WIDTH 13.8 % 11.6-16.2 N (test code = RDW) PLATELET COUNT (test code = 244 K/mm3 150-450 N PLT) MEAN PLATELET VOLUME (test code 10.0 fL 6.7-11.0 N = MPV) CBC W/O [id number] 14:12:00 Test Item Value Reference Range Interpretation Comments WHITE BLOOD CELL (test code = K/mm3 4.5-12.5 WBC) RED BLOOD CELL (test code = RBC) mill/mm3 3.7-5.2 HEMOGLOBIN (test code = HGB) 13.7 gram/dL 11.5-15.5 N HEMATOCRIT (test code = HCT) 41.1 % 36.0-46.0 N MEAN CELL VOLUME (test code = fL 80-98 MCV) MEAN CELL HGB (test code = MCH) picogram 27.0-33.0 MEAN CELL HGB CONCETRATION (test gram/dL 33.0-36.0 code = MCHC) RED CELL DISTRIBUTION WIDTH % 11.6-16.2 (test code = RDW) PLATELET COUNT (test code = PLT) K/mm3 150-450 MEAN PLATELET VOLUME (test code fL 6.7-11.0 = MPV) URINALYSIS [id number] 13:42:00 Test Item Value Reference Range Interpretation Comments UA COLOR (test code = YELLOW YELLOW COLU) UA APPEARANCE (test code CLEAR CLEAR = APPU) UA GLUCOSE DIPSTICK (test NEGATIVE mg/dL NEGATIVE code = DGLUU) UA BILIRUBIN DIPSTICK NEGATIVE mg/dL NEGATIVE (test code = BILU) UA KETONE DIPSTICK (test NEGATIVE mg/dL NEGATIVE code = KETU) UA SPECIFIC GRAVITY (test 1.023 1.001-1.035 code = SGU) UA BLOOD DIPSTICK (test Negative mg/dL NEGATIVE code = LUL) UA PH DIPSTICK (test code 6.5 5.0-8.0 = MAX) UA PROTEIN DIPSTICK (test NEGATIVE mg/dL NEGATIVE code = PROU) UA UROBILINIOGEN DIPSTICK Normal mg/dL NEGATIVE (test code = URO) UA NITRITE DIPSTICK (test NEGATIVE NEGATIVE code = KRISTY) UA LEUKOCYTE ESTERASE W 25 Anil/uL (Trace) NEGATIVE A REFLEX (test code = Anil/uL LEUUR) UA WBC (test code = WBCU) 0-5 per HPF 0-5 UA RBC (test code = RBCU) 0-2 #/HPF 0-5 UA EPITHELIAL CELLS (test FEW per HPF FEW code = EPIU) UA BACTERIA (test code = FEW #/HPF NONE A BACU) UA MUCUS (test code = FEW #/LPF FEW MUCU) Urine Source? Clean CatchDRUGS OF ABUSE SCREEN [id number] 13:42:00 Test Item Value Reference Range Interpretation Comments URN COCAINE (test NEGATIVE <300 ng/mL code = COCAURN) URN CANNABINOIDS POSITIVE <50 ng/mL A This test p rovides only a (test code = preliminary ame t result. CANNABURN) A morespecific alternate chemical method must be used in order t oobtain a confirmed darlin tical result. Gas chromatography/ mass spectrometry (G C/MS) is thepreferred co nfirmatory method. Other chemical confirmationmet hods are available. Cli nical consideration a nd professional ju dgment should be appli ed to any drug of abusete st result, particularly wh en preliminary pos itive resultsare used.Unconfirme d screening resul ts must not be used fornon-medical purposes (e.g., employme nt testing, legalt esting). URN AMPHETAMINE (test POSITIVE <1000 ng/mL A This t est provides only a code = AMPHETURN) preliminar y test result. A morespecific alternate chemical method must be used in order t oobtain a confirmed darlin tical result. Gas chromatography/ mass spectrometry (G C/MS) is thepreferred co nfirmatory method. Other chemical confirmationmet hods are available. Cli nical consideration a nd professional ju dgment should be appli ed to any drug of abusete st result, particularly wh en preliminary pos itive resultsare used.Unconfirme d screening resul ts must not be used fornon-medical purposes (e.g., employme nt testing, legalt esting). URN BARBITURATE (test POSITIVE <200 ng/mL A This t est provides only a code = BARBITURN) preliminar y test result. A morespecific alternate chemical method must be used in order t oobtain a confirmed darlin tical result. Gas chromatography/ mass spectrometry (G C/MS) is thepreferred co nfirmatory method. Other chemical confirmationmet hods are available. Cli nical consideration a nd professional ju dgment should be appli ed to any drug of abusete st result, particularly wh en preliminary pos itive resultsare used.Unconfirme d screening resul ts must not be used fornon-medical purposes (e.g., employme nt testing, legalt esting). URN BENZODIAZEPINE POSITIVE <200 ng/mL A This test provides only a (test code = preliminary ame t result. BENZOURN) A morespecific alternate chemical method must be used in order t oobtain a confirmed darlin tical result. Gas chromatography/ mass spectrometry (G C/MS) is thepreferred co nfirmatory method. Other chemical confirmationmet hods are available. Cli nical consideration a nd professional ju dgment should be appli ed to any drug of abusete st result, particularly wh en preliminary pos itive resultsare used.Unconfirme d screening resul ts must not be used fornon-medical purposes (e.g., employme nt testing, legalt esting). URN OPIATES (test NEGATIVE <300 ng/mL code = OPIATURN) URN PHENCYCLIDINE NEGATIVE <25 ng/mL (PCP) (test code = PHENCURN) URN METHADONE (test NEGATIVE <300 ng/mL code = METHAURN) Urine Source? Clean CatchURINALYSIS [id number] 13:27:00 Test Item Value Reference Range Interpretation Comments UA COLOR (test code = YELLOW YELLOW COLU) UA APPEARANCE (test code CLEAR CLEAR = APPU) UA GLUCOSE DIPSTICK (test NEGATIVE mg/dL NEGATIVE code = DGLUU) UA BILIRUBIN DIPSTICK NEGATIVE mg/dL NEGATIVE (test code = BILU) UA KETONE DIPSTICK (test NEGATIVE mg/dL NEGATIVE code = KETU) UA SPECIFIC GRAVITY (test 1.023 1.001-1.035 code = SGU) UA BLOOD DIPSTICK (test Negative mg/dL NEGATIVE code = LUL) UA PH DIPSTICK (test code 6.5 5.0-8.0 = MAX) UA PROTEIN DIPSTICK (test NEGATIVE mg/dL NEGATIVE code = PROU) UA UROBILINIOGEN DIPSTICK Normal mg/dL NEGATIVE (test code = URO) UA NITRITE DIPSTICK (test NEGATIVE NEGATIVE code = KRISTY) UA LEUKOCYTE ESTERASE W 25 Anil/uL (Trace) NEGATIVE A REFLEX (test code = Anil/uL LEUUR) UA WBC (test code = WBCU) 0-5 per HPF 0-5 UA RBC (test code = RBCU) 0-2 #/HPF 0-5 UA EPITHELIAL CELLS (test FEW per HPF FEW code = EPIU) UA BACTERIA (test code = FEW #/HPF NONE A BACU) UA MUCUS (test code = FEW #/LPF FEW MUCU) Urine Source? Clean CatchDRUGS OF ABUSE SCREEN [id number] 13:27:00 Test Item Value Reference Range Interpretation Comments URN COCAINE (test code = COCAURN) <300 ng/mL URN CANNABINOIDS (test code = <50 ng/mL CANNABURN) URN AMPHETAMINE (test code = AMPHETURN) <1000 ng/mL URN BARBITURATE (test code = BARBITURN) <200 ng/mL URN BENZODIAZEPINE (test code = <200 ng/mL BENZOURN) URN OPIATES (test code = OPIATURN) <300 ng/mL URN PHENCYCLIDINE (PCP) (test code = <25 ng/mL PHENCURN) URN METHADONE (test code = METHAURN) <300 ng/mL Urine Source? Clean Catch
[2020-02-02 20:46] LABS: Basophils % 0.5 % (0-1.3); Hematocrit 36.4 % (36.0-45.0); Lymphocytes % 30.8 % (15.3-44.8); MPV 8.1 fL (7.6-11.3); RBC Red Blood Cell Count 4.04 M/uL (3.86-4.86)
[2020-02-02 21:07] LABS: ALT/SGPT 20 U/L (12-78); AST/SGOT 10 U/L (15-37); Albumin 3.5 g/dL (3.4-5.0); Alkaline Phosphatase 66 U/L (45-117); BUN Blood Urea Nitrogen 9 mg/dL (7-18); Bicarbonate 25 mmol/L (21-32); Bilirubin Total 0.3 mg/dL (0.2-1.0); Glucose Level 95 mg/dL (74-106); Potassium 3.5 mmol/L (3.5-5.1); Protein, Total 7.2 g/dL (6.4-8.2); Sodium Level 141 mmol/L (136-145)
[2020-02-02] MEDS ORDERED: NA CHLORIDE 0.9% 100 ML IV ONE (21:29)
[2020-02-03 00:31] LABS: Barbiturates NEGATIVE (NEGATIVE); Benzodiazepines NEGATIVE (NEGATIVE); Cocaine NEGATIVE (NEGATIVE); METHAMPHETAM NEGATIVE (NEGATIVE); Methadone NEGATIVE (NEGATIVE); Opiates NEGATIVE (NEGATIVE); Phencyclidine NEGATIVE (NEGATIVE); THC Cannibis POSITIVE (NEGATIVE)
--- NOTE | 2020-02-03 11:18 | RAD REPORT ---
EXAM DESCRIPTION: Head Brain Wo Cont CLINICAL HISTORY: 29 years Female SEIZURE COMPARISON: None Technique: Contiguous axial images of the brain were obtained without the administration of intrave nous contrast.This exam was performed according to our departmental dose-optimization program which i ncludes use of Automated Exposure Control, adjustment of the mA and/or kV according to patient size a nd/or use of iterative reconstruction technique. DLP: 788 mGy*cm FINDINGS: Brain: No acute intracranial hemorrhage. No extra-axial collection. No mass effect or brayan iation. Ventricles: Within normal limits in size. Mild asymmetric prominence of the right temporal horn. Globes and orbits: No acute abnormality. Bones: No acute osseous finding Paranasal sinuses: Paranasal sinuses are clear. Mastoid air cells: Well pneumatized. Soft tissues: Within normal limits IMPRESSION: No acute intracranial abnormality. Mild asymmetric prominence of the right temporal horn. Dedicated MRI brain seizure protocol is recomm ended. If clinical concern for acute ischemia, consider MRI brain without contrast for further evaluation. Electronically signed by: Daquan Mccray DO 02/02/2020 11:58 PM CDT Due to temporary technical issues with the PACS/Fluency reporting system, reports are being signed by the in house radiologist as a courtesy to ensure prompt reporting. The interpreting radiologist is f ully responsible for the content of the report.
--- NOTE | 2020-02-08 13:59 | ER ---
Nurse's Notes [facility] Name: Macrina Fernández Age: 29 yrs Sex: Female : 1990 Arrival Date: 02/02/2020 Time: 19:55 Bed 28 Private MD: Diagnosis: Epilepsy and recurrent seizures;Cannabis abuse Presentation: 02/01 19:50 Chief complaint: EMS states: that pt had 3 seizures lasting about 20 secs each about 1900. Pt in rehab at [facility]. Ptdoes have hx of seizures and has not had medication in approx 5 days. Coronavirus screen: Proceed with normal triage. Ebola Screen: No symptoms or risks identified at this time. Initial Sepsis Screen: Does the patient meet any 2 criteria? No. Patient's initial sepsis screen is negative. Does the patient have a suspected source of infection? No. Patient's initial sepsis screen is negative. Risk Assessment: Do you want to hurt yourself or someone else? Patient reports no desire to harm self or others. Onset of symptoms was February 02, 2020 at 19:58. 19:50 Method Of Arrival: EMS: [facility] 19:50 Acuity: MIRELLA 3 Historical: - Allergies: 20:01 Keflex; 20:01 Iodine; - Home Meds: 20:01 Keppra Oral [Active]; Bupropion Oral [Active]; escitalopram oxalate oral oral [Active]; Trazodone Oral [Active]; Prazosin Oral [Active]; - PMHx: 20:01 Depression; PTSD; epilepsy; - PSHx: 20:01 Tonsillectomy; adnoidectomy; left lobectomy; - Immunization history:: Adult Immunizations up to date. - Social history:: Smoking status: Patient denies any tobacco usage or history of. Patient uses street drugs, heroin, marijuana. Screenin:19 Abuse screen: Denies threats or abuse. Nutritional screening: No deficits noted. Tuberculosis screening: No symptoms or risk factors identified. Fall Risk None identified. Assessment: 20:00 General: Appears in no apparent distress. Behavior is calm, cooperative. Pain: Denies pain. Neuro: Level of Consciousness is awake, alert, Oriented to person, place, time, situation, Seizure activity reported prior to arrival. Type of seizure: 3 seizures approx 20 secs each. Cardiovascular: Heart tones S1 S2 present Capillary refill < 3 seconds Patient's skin is warm and dry. Respiratory: Airway is patent Respiratory effort is even, unlabored, Respiratory pattern is regular, symmetrical. GI: Bowel sounds present X 4 quads. : No signs and/or symptoms were reported regarding the genitourinary system. EENT: No signs and/or symptoms were reported regarding the EENT system. Derm: No signs and/or symptoms reported regarding the dermatologic system. Musculoskeletal: No signs and/or symptoms reported regarding the musculoskeletal system. 20:00 Reassessment: Contact information for discharge [facility] [phone], Delia sg nurse [phone]. 20:40 Reassessment: Blood sent to lab, IV blown. Awaiting IV insertion. 21:00 Reassessment: Patient and/or family updated on plan of care and expected duration. Pain ah level reassessed. Patient is alert, oriented x 3, equal unlabored respirations, skin warm/dry/pink. Patient states feeling better. Patient states symptoms have improved. 23:56 Reassessment: Patient appears in no apparent distress at this time. Patient and/or sg family updated on plan of care and expected duration. Pain level reassessed. pt resting eyes closed, resp even and unlabored, pt awaiting results at this time, will continue to monitor. Vital Signs: 19:50 BP 122 / 73; Pulse 55; Resp 16; Temp 98.1; Pulse Ox 97% ; Weight 103.42 kg; Height 5 ft. 8 in. (172.72 cm); Pain 0/10; 20:15 BP 101 / 66; Pulse 51; Resp 16; Pulse Ox 98% ; ah 21:53 BP 118 / 70; Pulse 55; Resp 15; Pulse Ox 98% ; ah 19:50 Body Mass Index 34.67 (103.42 kg, 172.72 cm) ED Course: 01:19 IV discontinued, intact, bleeding controlled, No redness/swelling at site. Pressure sg dressing applied. 19:55 Patient arrived in ED. 19:56 Birgit Mccollum, RN is Primary Nurse. 19:58 Triage completed. ah 20:00 Yves Cruz NP is PHCP. pm1 20:00 Darryl Coffman MD is Attending Physician. pm1 22:15 Patient has correct armband on for positive identification. Bed in low position. Call light in reach. Side rails up X2. Seizure precautions initiated. Pulse ox on. NIBP on. 22:17 Missed attempt(s): 24 gauge in left hand. Bleeding controlled, band aid applied, catheter tip intact. 22:19 No provider procedures requiring assistance completed. Inserted Midline by RN to R AC. 22:20 Arm band placed on right wrist. 22:24 Primary Nurse role handed off by Birgit Mccollum, RN 22:24 Felipe Carlson, RN is Primary Nurse. 22:26 Report received from Birgit Mccollum RN. sg 23:00 IV is patent, is intact, with fluids infusing freely, 20 G RAC noted at this time. sg 23:35 CT Head Brain wo Cont In Process Unspecified. EDMS 23:45 Urine collected: clean catch specimen, clear, Amount Voided: 100mL. [facility] [place] 02/02 01:07 Awaiting transportation. sg Administered Medications: 02/01 21:30 Drug: Keppra 1000 mg Route: IV; Rate: calculated rate; Site: right antecubital; 22:20 Follow up: Response: No adverse reaction; IV Status: Completed infusion 21:30 Drug: NS 0.9% 1000 ml Route: IV; Rate: 1000 ml; Site: right antecubital; Outcome: 02/02 00:43 Discharge ordered by . pm1 01:19 Discharged to home ambulatory, with family. 01:19 Condition: good 01:19 Discharge instructions given to patient, Instructed on discharge instructions, follow up and referral plans. medication usage, safety practices, Demonstrated understanding of instructions, follow-up care, Prescriptions given X 0 01:20 Patient left the ED. sg Signatures: Dispatcher [employer] EDMS Felipe Carlson, RN LUIS Yves Cruz, AUTOGLAZIER AUTOGLAZIER pm1 Randy Epstein RN LUIS [facility] Birgit Mccollum RN RN
--- NOTE | 2020-02-08 14:00 | EDPHYS ---
Physician Documentation [facility] Name: Macrina Fernández Age: 29 yrs Sex: Female : 1990 Arrival Date: 02/02/2020 Time: 19:55 Bed 28 Private MD: ED Physician Darryl Coffman HPI: 02/01 20:09 This 29 yrs old Female presents to ER via EMS with complaints of Seizure. pm1 20:09 The patient presents with a history of multiple seizures, a total of 3, that last 20 pm1 second(s). Seizure onset: at 19:00. Context: Contributing factors: patient has not had her Keppra for the past 5 days. Seizure Hx: Seizure medications: Keppra. Associated injury: The patient did not suffer any apparent associated injury. Current symptoms: headache, that is mild. Patient is currently in drug rehabilitation at [facility]. Historical: - Allergies: 20:01 Keflex; 20:01 Iodine; - Home Meds: 20:01 Keppra Oral [Active]; Bupropion Oral [Active]; escitalopram oxalate oral oral [Active]; Trazodone Oral [Active]; Prazosin Oral [Active]; - PMHx: 20:01 Depression; PTSD; epilepsy; - PSHx: 20:01 Tonsillectomy; adnoidectomy; left lobectomy; - Immunization history:: Adult Immunizations up to date. - Social history:: Smoking status: Patient denies any tobacco usage or history of. Patient uses street drugs, heroin, marijuana. ROS: 20:09 Constitutional: Negative for fever, chills, and weight loss, Neck: Negative for injury, pm1 pain, and swelling, Cardiovascular: Negative for chest pain, palpitations, and edema, Respiratory: Negative for shortness of breath, cough, wheezing, and pleuritic chest pain, Abdomen/GI: Negative for abdominal pain, nausea, vomiting, diarrhea, and constipation, Back: Negative for injury and pain, MS/Extremity: Negative for injury and deformity, Skin: Negative for injury, rash, and discoloration. 20:09 Neuro: Positive for headache, Negative for head injury. Exam: 20:09 Constitutional: This is a well developed, well nourished patient who is awake, alert, pm1 and in no acute distress. Head/Face: Normocephalic, atraumatic. Neck: Trachea midline, no thyromegaly or masses palpated, and no cervical lymphadenopathy. Supple, full range of motion without nuchal rigidity, or vertebral point tenderness. No Meningismus. Chest/axilla: Normal chest wall appearance and motion. Nontender with no deformity. No lesions are appreciated. 20:09 Respiratory: Lungs have equal breath sounds bilaterally, clear to auscultation and percussion. No rales, rhonchi or wheezes noted. No increased work of breathing, no retractions or nasal flaring. Abdomen/GI: Soft, non-tender, with normal bowel sounds. No distension or tympany. No guarding or rebound. No evidence of tenderness throughout. Back: No spinal tenderness. No costovertebral tenderness. Full range of motion. Skin: Warm, dry with normal turgor. Normal color with no rashes, no lesions, and no evidence of cellulitis. MS/ Extremity: Pulses equal, no cyanosis. Neurovascular intact. Full, normal range of motion. 20:09 Cardiovascular: Rate: bradycardic, actual rate is 55 bpm, Rhythm: regular, Pulses: no pulse deficits are appreciated. 20:09 Neuro: Orientation: is normal, Mentation: is normal, Motor: is normal, moves all fours. Vital Signs: 19:50 BP 122 / 73; Pulse 55; Resp 16; Temp 98.1; Pulse Ox 97% ; Weight 103.42 kg; Height 5 ah ft. 8 in. (172.72 cm); Pain 0/10; 20:15 BP 101 / 66; Pulse 51; Resp 16; Pulse Ox 98% ; ah 21:53 BP 118 / 70; Pulse 55; Resp 15; Pulse Ox 98% ; ah 19:50 Body Mass Index 34.67 (103.42 kg, 172.72 cm) MDM: 20:00 Patient medically screened. pm1 20:02 Data reviewed: vital signs. Data interpreted: Pulse oximetry: on room air is 97 %. pm1 Interpretation: normal. 02/02 00:35 ED course: Patient admits to smoking marijuana "and some" yesterday. pm1 00:43 Counseling: I had a detailed discussion with the patient and/or guardian regarding: the pm1 historical points, exam findings, and any diagnostic results supporting the discharge/admit diagnosis, lab results, radiology results, the need for outpatient follow up, a neurologist, to return to the emergency department if symptoms worsen or persist or if there are any questions or concerns that arise at home. 02/01 20:01 Order name: CBC with Diff; Complete Time: 21:15 pm1 02/01 20:01 Order name: CMP; Complete Time: 21:15 pm1 02/01 23:01 Order name: UDS; Complete Time: 00:34 pm1 02/01 23:01 Order name: CT Head Brain wo Cont pm1 02/01 20:01 Order name: IV Saline Lock; Complete Time: 22:15 pm1 02/01 23:01 Order name: Urine Dipstick-Ancillary (obtain specimen); Complete Time: 23:41 pm1 02/01 23:01 Order name: Urine Test (obtain specimen); Complete Time: 23:41 pm1 Administered Medications: 02/01 21:30 Drug: Keppra 1000 mg Route: IV; Rate: calculated rate; Site: right antecubital; 22:20 Follow up: Response: No adverse reaction; IV Status: Completed infusion 21:30 Drug: NS 0.9% 1000 ml Route: IV; Rate: 1000 ml; Site: right antecubital; Disposition: 02/02 06:50 Co-signature as Attending Physician, Darryl Coffman MD. ri2 Disposition: 02/03/20 00:43 Discharged to Home. Impression: Epilepsy and recurrent seizures, Cannabis abuse. - Condition is Stable. - Discharge Instructions: Cannabis Use Disorder, Seizure, Adult, [id number]. - Medication Reconciliation Form, Thank You Letter, Antibiotic Education, Prescription Opioid Use form. - Follow up: Emergency Department; When: As needed; Reason: Worsening of condition. Follow up: Private Physician; When: 2 - 3 days; Reason: Recheck today's complaints, Continuance of care, Re-evaluation by your physician. - Problem is new. - Symptoms have improved. Signatures: Dispatcher [employer] Felipe Mchugh RN RN Yves Cruz, CLEANING ATTENDANT CLEANING ATTENDANT pm1 Darryl Coffman MD MD ri2 Birgit Mccollum RN RN Corrections: (The following items were deleted from the chart) 00:45 00:43 02/03/2020 00:43 Discharged to Home. Impression: Epilepsy and recurrent seizures. pm1 Condition is Stable. Forms are Medication Reconciliation Form, Thank You Letter, Antibiotic Education, Prescription Opioid Use. Follow up: Emergency Department; When: As needed; Reason: Worsening of condition. Follow up: Private Physician; When: 2 - 3 days; Reason: Recheck today's complaints, Continuance of care, Re-evaluation by your physician. Problem is new. Symptoms have improved. pm1 01:20 00:45 02/03/2020 00:43 Discharged to Home. Impression: Epilepsy and recurrent seizures; sg Cannabis abuse. Condition is Stable. Discharge Instructions: Seizure, Adult, [id number], Cannabis Use Disorder. Forms are Medication Reconciliation Form, Thank You Letter, Antibiotic Education, Prescription Opioid Use. Follow up: Emergency Department; When: As needed; Reason: Worsening of condition. Follow up: Private Physician; When: 2 - 3 days; Reason: Recheck today's complaints, Continuance of care, Re-evaluation by your physician. Problem is new. Symptoms have improved. pm1
== END 2020-02-03 01:20 | disposition home or self-care (01) ==
LOC: ER 19:48
DX: G40.802 Other epilepsy, not intractable, without status epilepticus (principal); F12.10 Cannabis abuse, uncomplicated; F32.9 Major depressive disorder, single episode, unspecified; Z88.1 Allergy status to other antibiotic agents; Z91.048 Other nonmedicinal substance allergy status
CPT/HCPCS: 36415; 70450; 80053; 80307; 85025; 96365; 99284

== ENCOUNTER 2020-02-06 18:10 | Emergency (ER) | payer SELFPAY ==
--- OUTSIDE RECORDS SUMMARY | 2020-02-06 18:14 | XMS REPORT ---
:1990 Author Organization [facility] t Address [address] [place] [address] Care Team Providers Name Role Phone Unavailable Unavailable Unavailable Payers Payer Name Policy Type Policy Number Effective Date Expiration Date S ource Problems This patient has no known problems. Allergies, Adverse Reactions, Alerts Allergy Allergy Status Severity Reaction(s) Onset Inactive Treating Comm ents Source Name Type Date Date Clinician iodine [facility] No Known DA Active U 2020-0 [facility] Medications This patient has no known medications. Procedures This patient has no known procedures. Results Test Description Test Time Test Comments Results Result Comments Source TROPONIN-I 2020-01-27 23:37:00 Test Item Value Reference Range Interpretation Comme nts TROPONIN-I (test code = TROPI) <0.015 ng/mL 0-0.045 N [id number] 20:28:00 Test Item Value Reference Range Interpretation Comments TROPONIN-I (test code = TROPI) <0.015 ng/mL 0-0.045 N [id number] 16:17:00 Test Item Value Reference Range Interpretation Comments TROPONIN-I (test code = TROPI) <0.015 ng/mL 0-0.045 N BASIC METABOLIC [id number] 06:51:00 Test Item Value Reference Range Interpretation [...] GFR) formula.Chronic kidney disease is defined as [facility] er kidney damageor GFR <60 mL/min/1.73 m2 for >3 months. CREATININE (test code 0.70 mg/dL 0.55-1.02 N Note change in = CREAT) reference range due to change in reagent. BUN/CREATININE RATIO 8.1 10-20 L (test code = BUN/CREA) CALCIUM (test code = 9.1 mg/dL 8.5-10.1 N CA) BASIC METABOLIC [id number] 06:49:00 Test Item Value Reference Range Interpretation [...] code = CA) mg/dL 8.5-10.1 CBC W/AUTO [id number] 06:15:00 Test Item Value Reference Range Interpretation [...] 0.00 K/mm3 0.0-0.1 N NRBC#) CBC W/AUTO [id number] 05:59:00 Test Item Value Reference Range Interpretation [...] K/mm3 0.0-0.2 - XR WRIST 2 VIEWS [id number] 16:30:00 FAX: Luis Daniel Pineda MD [phone] [place]: B St: ADM FAX: Antonino Schofield NP [phone] [facility] 1990 Age/S: 29/F [address] Unit #: [id number] Loc: V.[address] [place] [address] Phys: Antonino Schofield NP Acct: V [id number] Dis Date: Status: ADM IN PHONE #: [phone] Exam Date: 01/26/2020 1551 FAX #: [phone] Reason: PAIN INRIGHT HAND/WRIST EXAMS: CPT CODE: [id number] XR WRIST [address] [place] [address] EXAM: Right wrist, 2 views and right hand, 2 views; INFORMATION: Pain; FINDINGS: Normal shape and structure of the imaged bones; no evidence of fracture or dislocation; no soft tissue abnormalities. IMPRESSION: No evidence of acute osseous trauma or other pathological changes. No radiopaque foreign body. Location code: [facility] at 1630 Reported and signed by: Oswaldo Mensah M.D. 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 IMPRESSION: No evidence of acute osseous trauma or other pathological changes. No radiopaque foreign body. Location code: [facility] at 1630 Reported and signed by: Oswaldo Mensah M.D. CC: Luis Daniel Pineda MD; Antonino Schofield NP Technologist: Enrique Dumont, RT(R; Carolina Lopez RT(R) Trnscrd Date/Time/By: 01/26/2020 (474) : By: ChristGRW Orig Print D/T: S: 01/26/2020 (4622) PAGE 1 Signed [id number] 16:08:00 Test Item Value Reference Interpretation Comments Range LEVETIRACETAM 47.9 ug/mL 10.0-40.0 A This test was developed and (test code = its performance LEVTAM) characteristics determined [facility]. It has not been cleared orappro óscar by the Food and Drug Administration. Performed At: [facility] [address] [facility] Silvino costello [place] [id number] ra Arnie MARTIN Ph:[phone] BASIC METABOLIC [id number] 07:52:00 Test Item Value Reference Range Interpretation [...] code = CA) mg/dL 8.5-10.1 BASIC METABOLIC [id number] 07:52:00 Test Item Value Reference Range Interpretation [...] 9.0 mg/dL 8.5-10.1 N CA) CBC W/AUTO [id number] 07:35:00 Test Item Value Reference Range Interpretation [...] (test code NO = MDIFF) BASIC METABOLIC [id number] 05:23:00 Test Item Value Reference Range Interpretation [...] 9.4 mg/dL 8.5-10.1 N CA) BASIC METABOLIC [id number] 05:15:00 Test Item Value Reference Range Interpretation [...] code = CA) mg/dL 8.5-10.1 CBC W/AUTO [id number] 04:52:00 Test Item Value Reference Range Interpretation [...] (test code NO = MDIFF) CBC W/AUTO [id number] 04:42:00 Test Item Value Reference Range Interpretation [...] BA#) K/mm3 0.0-0.2 - CT HEAD/BRAIN W/O [id number] 17:28:00 Name: ALEX MADRIGAL [facility] : 1990 Age/S: 29 / F [address] Unit #: [id number] Loc: [place] [address] 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: Antonino Schofield 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 Acct: [id number] Dis Date: Status: ADM IN PHONE #: [phone] Exam Date: 01/24/2020 8252 FAX #: [phone] Reason: S/P ROLLED OUT OF BED EXAMS: CPTCODE: [id number] CT HEAD/BRAIN W/O CONT 54257 EXAM: CT ofthe head without contrast; INFORMATION: [...] CTDI: DLP: Trnscb Da te/Time: 01/24/2020 (1728) t.SDR.GRW Orig Print D/T: S: 01/24/2020 (9460) PAGE 1 Signed ReportDRUGS OF ABUSE SCREEN [id number] 13:25:00 Test Item Value Reference Range Interpretation [...] code = METHAURN) DRUGS OF ABUSE SCREEN [id number] 13:00:00 Test Item Value Reference Range Interpretation [...] code = METHAURN) <300 ng/mL BASIC METABOLIC [id number] 07:55:00 Test Item Value Reference Range Interpretation [...] 9.2 mg/dL 8.5-10.1 N CA) UR HCG [id number] 07:30:00 Test Item Value Reference Range Interpretation Comments UR HCG QUAL (test NEGATIVE This HCGQL test is NOT code = HCGQLU) applicable fo r MALE patients.Check with nurse about probable order error.If Tumor Marker Test needed, nu rse should order test "HCG TU"(Test #550.99933)---- - CBC W/AUTO [id number] 07:11:00 Test Item Value Reference Range Interpretation [...] = 0.00 K/mm3 0.0-0.1 N NRBC#) AB [id number] 02:27:00 Test Item Value Reference Range Interpretation Comments AB TREPONEMA (test code = Nonreactive Index NonReactive TREPAB) [id number] 02:24:00 Test Item Value Reference Range Interpretation Comments PHOSPHORUS (test code = PHOS) 2.8 mg/dL 2.5-4.9 N [id number] 02:24:00 Test Item Value Reference Range Interpretation Comments MAGNESIUM (test code = MAG) 2.1 mg/dL 1.8-2.4 N VITAMIN [id number] 02:24:00 Test Item Value Reference Range Interpretation Comments VITAMIN B12 (test code = VITB12) 274 pg/mL 193-986 N FOLIC [id number] 02:24:00 Test Item Value Reference Range Interpretation Comments FOLIC ACID (test code = FOL) 18.3 ng/mL 3.10-17.50 H [id number] 02:24:00 Test Item Value Reference Range Interpretation [...] AN ADDITIONAL CHARGE TO THE P ATIENT. [id number] 02:18:00 Test Item Value Reference Range Interpretation Comments PHOSPHORUS (test code = PHOS) 2.8 mg/dL 2.5-4.9 N [id number] 02:18:00 Test Item Value Reference Range Interpretation Comments MAGNESIUM (test code = MAG) 2.1 mg/dL 1.8-2.4 N VITAMIN [id number] 02:18:00 Test Item Value Reference Range Interpretation Comments VITAMIN B12 (test code = VITB12) pg/mL 193-986 FOLIC [id number] 02:18:00 Test Item Value Reference Range Interpretation Comments FOLIC ACID (test code = FOL) 18.3 ng/mL 3.10-17.50 H [id number] 02:18:00 Test Item Value Reference Range Interpretation Comments ALCOHOL (test code = ALC) mg/dL 0-3 [id number] 02:00:00 Test Item Value Reference Range Interpretation Comments AMMONIA (test code = AMM) < 10 umol/L 11-32 L PROTHROMBIN [id number] 01:43:00 Test Item Value Reference Range Interpretation [...] PATIENT ON ANTICOAGULANTS? N- CT HEAD/BRAIN W/O [id number] 21:58:00 Name: ALEX MADRIGAL [facility] : 1990 Age/S: 29 / F [address] [facility] Unit #: [id number] Loc: [place] [address] Phys: Haroon Moise MD Acct: [id number] Dis Date: Status: REG ER PHONE #: [phone] Exam Date: 01/23/20202155 FAX #: [phone] Reason: seizure EXAMS: CPTCODE: [id number] CT HEAD/BRAIN W/O CONT [address] HEAD WITHOUT CONTRAST HISTORY: seizure [...] clear. IMPRESSION: No acute intracranial abnormality. at 215 Reported and signed by: Diaz Clemente MD CC: Haroon Moise MD Technologist:Hesham Vu, RT(R)(CT) CTDI: DLP: Trnscb Date/Time: 01/23/2020 (2157) ChristVB7 Orig Print D/T: S: 01/23/2020 (2201) PAGE 1 Signed ReportBASIC METABOLIC [id number] 21:26:00 Test Item Value Reference Range Interpretation [...] code = CA) mg/dL 8.5-10.1 HCG SERUM [id number] 21:26:00 Test Item Value Reference Range Interpretation Comments HCG SERUM QUAL (test NEGATIVE NEGATIVE This HC GQL test is NOT code = HCGQL) applicable for MALE patients.Check with nurse about probable order error.If Tumor Marker Test needed, nu rse should order test "HCG TU"(Test #550.36473)---- - BASIC METABOLIC [id number] 21:26:00 Test Item Value Reference Range Interpretation [...] 9.3 mg/dL 8.5-10.1 N CA) HCG SERUM [id number] 21:26:00 Test Item Value Reference Range Interpretation Comments HCG SERUM QUAL (test NEGATIVE NEGATIVE This HC GQL test is NOT code = HCGQL) applicable for MALE patients.Check with nurse about probable order error.If Tumor Marker Test needed, nu rse should order test "HCG TU"(Test #550.15632)---- - BASIC METABOLIC [id number] 21:25:00 Test Item Value Reference Range Interpretation [...] code = CA) mg/dL 8.5-10.1 HCG SERUM [id number] 21:25:00 Test Item Value Reference Range Interpretation Comments HCG SERUM QUAL (test code = HCGQL) NEGATIVE CBC W/O [id number] 21:17:00 Test Item Value Reference Range Interpretation [...] code fL 6.7-11.0 = MPV) CBC W/O [id number] 21:17:00 Test Item Value Reference Range Interpretation [...] fL 6.7-11.0 N = MPV) BASIC METABOLIC [id number] 21:38:00 Test Item Value Reference Range Interpretation [...] 9.6 mg/dL 8.5-10.1 N CA) HEPATIC FUNCTION [id number] 21:38:00 Test Item Value Reference Range Interpretation [...] range due ALKP) to change in reagent. [id number] 21:38:00 Test Item Value Reference Range Interpretation Comments LIPASE (test code = LIP) 140 U/L 73.0-393.0 N HCG SERUM [id number] 21:38:00 Test Item Value Reference Range Interpretation Comments HCG SERUM QUAL (test NEGATIVE NEGATIVE This HC GQL test is NOT code = HCGQL) applicable for MALE patients.Check with nurse about probable order error.If Tumor Marker Test needed, nu rse should order test "HCG TU"(Test #550.39372)---- - [id number] 21:38:00 Test Item Value Reference Range Interpretation [...] [facility] BASIC METABOLIC [id number] 21:35:00 Test Item Value Reference Range Interpretation [...] code = CA) mg/dL 8.5-10.1 HEPATIC FUNCTION [id number] 21:35:00 Test Item Value Reference Range Interpretation [...] TOTAL (test IUnit/L 45-117 code = ALKP) [id number] 21:35:00 Test Item Value Reference Range Interpretation Comments LIPASE (test code = LIP) U/L 73.0-393.0 HCG SERUM [id number] 21:35:00 Test Item Value Reference Range Interpretation Comments HCG SERUM QUAL (test NEGATIVE NEGATIVE This HC GQL test is NOT code = HCGQL) applicable for MALE patients.Check with nurse about probable order error.If Tumor Marker Test needed, nu rse should order test "HCG TU"(Test #550.71618)---- - [id number] 21:35:00 Test Item Value Reference Range Interpretation Comments ALCOHOL (test code = ALC) mg/dL 0-3 BASIC METABOLIC [id number] 21:30:00 Test Item Value Reference Range Interpretation [...] code = CA) mg/dL 8.5-10.1 HEPATIC FUNCTION [id number] 21:30:00 Test Item Value Reference Range Interpretation [...] TOTAL (test IUnit/L 45-117 code = ALKP) [id number] 21:30:00 Test Item Value Reference Range Interpretation Comments LIPASE (test code = LIP) U/L 73.0-393.0 HCG SERUM [id number] 21:30:00 Test Item Value Reference Range Interpretation Comments HCG SERUM QUAL (test code = HCGQL) NEGATIVE [id number] 21:30:00 Test Item Value Reference Range Interpretation Comments ALCOHOL (test code = ALC) mg/dL 0-3 CBC W/O [id number] 21:24:00 Test Item Value Reference Range Interpretation [...] fL 6.7-11.0 N = MPV) CBC W/O [id number] 21:19:00 Test Item Value Reference Range Interpretation [...] code fL 6.7-11.0 = MPV) BASIC METABOLIC [id number] 14:44:00 Test Item Value Reference Range Interpretation [...] 9.6 mg/dL 8.5-10.1 N CA) HEPATIC FUNCTION [id number] 14:44:00 Test Item Value Reference Range Interpretation [...] range due ALKP) to change in reagent. [id number] 14:44:00 Test Item Value Reference Range Interpretation Comments LIPASE (test code = LIP) 101 U/L 73.0-393.0 N HCG SERUM [id number] 14:44:00 Test Item Value Reference Range Interpretation Comments HCG SERUM QUAL (test NEGATIVE NEGATIVE This HC GQL test is NOT code = HCGQL) applicable for MALE patients.Check with nurse about probable order error.If Tumor Marker Test needed, nu rse should order test "HCG TU"(Test #550.11987)---- - [id number] 14:44:00 Test Item Value Reference Range Interpretation Comments TROPONIN-I (test code = TROPI) <0.015 ng/mL 0-0.045 N [id number] 14:44:00 Test Item Value Reference Range Interpretation [...] CHARGE TO THE P ATIENT. BASIC METABOLIC [id number] 14:37:00 Test Item Value Reference Range Interpretation [...] code = CA) mg/dL 8.5-10.1 HEPATIC FUNCTION [id number] 14:37:00 Test Item Value Reference Range Interpretation [...] TOTAL (test IUnit/L 45-117 code = ALKP) [id number] 14:37:00 Test Item Value Reference Range Interpretation Comments LIPASE (test code = LIP) U/L 73.0-393.0 HCG SERUM [id number] 14:37:00 Test Item Value Reference Range Interpretation Comments HCG SERUM QUAL (test NEGATIVE NEGATIVE This HC GQL test is NOT code = HCGQL) applicable for MALE patients.Check with nurse about probable order error.If Tumor Marker Test needed, nu rse should order test "HCG TU"(Test #550.82042)---- - [id number] 14:37:00 Test Item Value Reference Range Interpretation Comments TROPONIN-I (test code = TROPI) ng/mL 0-0.045 [id number] 14:37:00 Test Item Value Reference Range Interpretation Comments ALCOHOL (test code = ALC) mg/dL 0-3 BASIC METABOLIC [id number] 14:36:00 Test Item Value Reference Range Interpretation [...] code = CA) mg/dL 8.5-10.1 HEPATIC FUNCTION [id number] 14:36:00 Test Item Value Reference Range Interpretation [...] TOTAL (test IUnit/L 45-117 code = ALKP) [id number] 14:36:00 Test Item Value Reference Range Interpretation Comments LIPASE (test code = LIP) U/L 73.0-393.0 HCG SERUM [id number] 14:36:00 Test Item Value Reference Range Interpretation Comments HCG SERUM QUAL (test code = HCGQL) NEGATIVE [id number] 14:36:00 Test Item Value Reference Range Interpretation Comments TROPONIN-I (test code = TROPI) ng/mL 0-0.045 [id number] 14:36:00 Test Item Value Reference Range Interpretation Comments ALCOHOL (test code = ALC) mg/dL 0-3 CBC W/O [id number] 14:24:00 Test Item Value Reference Range Interpretation [...] fL 6.7-11.0 N = MPV) CBC W/O [id number] 14:12:00 Test Item Value Reference Range Interpretation [...] (test code fL 6.7-11.0 = MPV) URINALYSIS [id number] 13:42:00 Test Item Value Reference Range Interpretation [...] Urine Source? Clean CatchDRUGS OF ABUSE SCREEN [id number] 13:42:00 Test Item Value Reference Range Interpretation [...] code = METHAURN) Urine Source? Clean CatchURINALYSIS [id number] 13:27:00 Test Item Value Reference Range Interpretation [...] Urine Source? Clean CatchDRUGS OF ABUSE SCREEN [id number] 13:27:00 Test Item Value Reference Range Interpretation [...]
[2020-02-06 18:52] LABS: Absolute Lymphocytes (CBC) 2.2 K/uL (0.7-4.9); Basophils % 0.7 % (0-1.3); Hematocrit 37.1 % (36.0-45.0); Lymphocytes % 31.2 % (15.3-44.8); MPV 8.1 fL (7.6-11.3)
[2020-02-06] MEDS ORDERED: NA CHLORIDE 0.9% 1,000 ML ONE (19:05)
[2020-02-06] MEDS ORDERED: NA CHLORIDE 0.9% 100 ML IV ONE (19:05)
[2020-02-06] MEDS ORDERED: ONDANSETRON 4 MG/2 ML VIAL ONE (19:05)
[2020-02-06] MEDS ORDERED: LEVETIRACETAM 500 MG/5 ML VIAL IV ONE (19:05)
--- NOTE | 2020-02-06 19:09 | RAD REPORT ---
EXAM DESCRIPTION: CT - CTHCSPWOC - 02/06/2020 6:56 pm CLINICAL HISTORY: Trauma, head and neck injury. seizure;Pain COMPARISON: No comparisons TECHNIQUE: Axial 5 mm thick images of the head were obtained. Axial 2 mm thick images of the cervical spine were obtained with sagittal and coronal reconstruction images generated and reviewed. All CT scans are performed using dose optimization technique as appropriate and may include automated exposure control or mA/KV adjustment according to patient size. FINDINGS: CT HEAD WITHOUT CONTRAST: No acute hemorrhage, hydrocephalus or extra-axial collection is identified.No areas of brain edema or midline shift. The paranasal sinuses and mastoids are clear.The calvarium is intact. CT CERVICAL SPINE WITHOUT CONTRAST: No fracture or subluxation.No prevertebral soft tissues swelling is identified. IMPRESSION: No acute intracranial or cervical spine findings.
[2020-02-06 19:20] LABS: ALT/SGPT 15 U/L (12-78); AST/SGOT 8 U/L (15-37); Albumin 3.6 g/dL (3.4-5.0); Alkaline Phosphatase 68 U/L (45-117); BUN Blood Urea Nitrogen 10 mg/dL (7-18); Bicarbonate 24 mmol/L (21-32); Bilirubin Direct 0.1 mg/dL (0-0.2); Bilirubin Total 0.4 mg/dL (0.2-1.0); Glucose Level 97 mg/dL (74-106); Potassium 3.7 mmol/L (3.5-5.1); Protein, Total 7.2 g/dL (6.4-8.2); Sodium Level 141 mmol/L (136-145)
[2020-02-06 20:52] LABS: Barbiturates NEGATIVE (NEGATIVE); Benzodiazepines NEGATIVE (NEGATIVE); Cocaine NEGATIVE (NEGATIVE); METHAMPHETAM NEGATIVE (NEGATIVE); Methadone NEGATIVE (NEGATIVE); Opiates NEGATIVE (NEGATIVE); Phencyclidine NEGATIVE (NEGATIVE); THC Cannibis POSITIVE (NEGATIVE)
[2020-02-06 21:53] LABS: Urine Blood NEGATIVE (NEG); Urine Glucose NEGATIVE (NEG); Urine Protein NEGATIVE (NEG); Urine Specific Gravity >1.030 (1.005-1.030)
[2020-02-06 22:53] VITALS: BP 113/75; TEMP 98; O2SAT 99
--- NOTE | 2020-02-07 14:06 | EKG ---
Test Date: 2020-02-06 Test Time: 22:06:29 Night Manager: RR MEASUREMENT RESULTS: Intervals: Rate: 53 AR: 214 QRSD: 106 QT: 458 QTc: 429 [place]: P: 18 AR: 214 QRS: 63 T: 20 INTERPRETIVE STATEMENTS: Sinus bradycardia with 1st degree AV block Otherwise normal ECG No previous ECG available for comparison Electronically Signed On 02-07-20 14:05:43 CDT by Favian Vidal
--- NOTE | 2020-02-08 18:21 | EDPHYS ---
Physician Documentation [facility] Name: Macrina Fernández Age: 29 yrs Sex: Female : 1990 Arrival Date: 02/06/2020 Time: 18:11 Bed 8 Private MD: ED Physician Lyle Covington HPI: 02/05 18:30 This 29 yrs old Female presents to ER via EMS with complaints of Seizure. cp 18:30 The patient presents after having a single isolated seizure, that lasted an unknown cp period of time. Seizure onset: last night. Context: the seizure(s) was witnessed, by no one, occurred drug rehab center, occurred while the patient was taking shower. Contributing factors: history of seizure disorder. Seizure Hx: Original onset: longstanding, Seizure medications: Keppra 1000 mg twice daily. Associated injury: Head/face: left occipital area and right occipital area, pain, Neck: tenderness. Current symptoms: headache, nausea and vomiting. 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 - Social history:: Smoking status: Patient reports the use of cigarette tobacco products, denies chronic smoking, but will smoke occasionally, Patient uses street drugs, heroin, marijuana, . ROS: 18:35 Constitutional: Negative for body aches, chills, fever, poor PO intake. cp 18:35 Eyes: Negative for injury, pain, redness, and discharge. cp 18:35 Neck: Positive for bony tenderness. 18:35 Cardiovascular: Negative for chest pain, palpitations. 18:35 Respiratory: Negative for cough, shortness of breath, wheezing. 18:35 Abdomen/GI: Positive for nausea and vomiting, Negative for abdominal pain, diarrhea, constipation. 18:35 Back: Negative for pain at rest, pain with movement. 18:35 Neuro: Positive for headache, Negative for altered mental status, numbness, seizure activity, weakness. 18:35 All other systems are negative. Exam: 18:40 Constitutional: The patient appears in no acute distress, alert, awake, cp non-diaphoretic, non-toxic, well developed, well nourished, obese. 18:40 Head/face: Noted is tenderness, that is moderate, of the left occipital area and right cp occipital area. 18:40 Eyes: Periorbital structures: appear normal, Pupils: equal, round, and reactive to light and accomodation, Extraocular movements: intact throughout, Conjunctiva: normal, no exudate, no injection, Lids and lashes: appear normal, bilaterally. 18:40 ENT: External ear(s): are unremarkable, Nose: is normal, Mouth: is normal, Posterior pharynx: is normal, airway is patent. 18:40 Neck: C-spine: C-collar placed in ED, vertebral tenderness, that is mild, appreciated at C5 and C6. 18:40 Chest/axilla: Inspection: normal, Palpation: is normal, no crepitus, no tenderness. 18:40 Cardiovascular: Rate: normal, Rhythm: regular. 18:40 Respiratory: the patient does not display signs of respiratory distress, Respirations: normal, no use of accessory muscles, no retractions, labored breathing, is not present, Breath sounds: are clear throughout, no decreased breath sounds, no stridor, no wheezing. 18:40 Abdomen/GI: Inspection: abdomen appears normal, Bowel sounds: active, all quadrants, Palpation: soft, in all quadrants, mild abdominal tenderness, in the epigastric area, rebound tenderness, is not appreciated, voluntary guarding, is not appreciated, involuntary guarding, is not appreciated. 18:40 Back: pain, is absent, ROM is normal. 18:40 Musculoskeletal/extremity: Exam is negative for decreased range of motion, deformity, injury. 18:40 Skin: no rash present. 18:40 Neuro: Orientation: to person, place \T\ time. Mentation: is normal, Cerebellar function: is grossly normal, Motor: moves all fours, strength is normal, Sensation: is normal. 22:13 ECG was reviewed by the Attending Physician. cp Vital Signs: 18:12 BP 106 / 71; Pulse 64; Resp 16; Temp 98.1(TE); Pulse Ox 98% on R/A; Weight 103.42 kg; ss Height 5 ft. 8 in. (172.72 cm); Pain 8/10; 19:00 BP 112 / 72; Pulse 58; Resp 16; Pulse Ox 100% on R/A; Pain 0/10; ls4 20:23 BP 96 / 52; Pulse 58; Resp 16; Pulse Ox 99% on R/A; Pain 0/10; ls4 21:01 BP 113 / 65; Pulse 56; Resp 14; Pulse Ox 100% on R/A; Pain 0/10; ls4 22:21 BP 113 / 75; Pulse 61; Resp 17; Temp 98; Pulse Ox 99% ; rr5 18:12 Body Mass Index 34.67 (103.42 kg, 172.72 cm) ss Luis Enrique Coma Score: 18:12 Eye Response: spontaneous(4). Verbal Response: oriented(5). Motor Response: obeys ss commands(6). Total: 15. MDM: 18:19 Patient medically screened. 21:55 Data reviewed: vital signs, nurses notes, lab test result(s), EKG, radiologic studies, cp CT scan, and as a result, I will discharge patient. 02/05 18:19 Order name: Acetaminophen 02/05 18:19 Order name: Basic Metabolic Panel 02/05 18:19 Order name: CBC with Diff; Complete Time: 19:12 02/05 19:12 Interpretation: Reviewed. 02/05 18:19 Order name: ETOH Level; Complete Time: 21:34 02/05 21:34 Interpretation: Reviewed. 02/05 18:19 Order name: Hepatic Function; Complete Time: 21:34 02/05 21:34 Interpretation: Normal except: AST 8; GLOB 3.6; A/G 1.0. 02/05 18:19 Order name: PT-INR; Complete Time: 19:12 02/05 18:19 Order name: Ptt, Activated; Complete Time: 19:12 02/05 18:19 Order name: Salicylate; Complete Time: 21:34 02/05 21:34 Interpretation: TONEY < 1.7; Reviewed. 02/05 18:19 Order name: Urine Drug Screen; Complete Time: 21:34 cp 02/05 21:34 Interpretation: Normal except: THC POSITIVE. 02/05 18:20 Order name: Acetaminophen Level; Complete Time: 21:34 EDMS 02/05 18:20 Order name: Basic Metabolic Panel; Complete Time: 21:34 EDMS 02/05 21:34 Interpretation: Normal except: CL 112; GFR 70. 02/05 18:36 Order name: CT Head C Spine; Complete Time: 19:12 cp 02/05 19:13 Interpretation: Reviewed report. 02/05 20:37 Order name: Urine Dipstick--Ancillary (enter results) wa 02/05 20:37 Order name: Urine --Ancillary (enter results) wa 02/05 18:19 Order name: Urine Test (obtain specimen); Complete Time: 20:36 cp 02/05 18:19 Order name: EKG; Complete Time: 18:21 cp 02/05 18:19 Order name: EKG - Nurse/Tech; Complete Time: 20:17 cp 02/05 18:19 Order name: IV Saline Lock; Complete Time: 20:17 cp 02/05 18:19 Order name: Labs collected and sent; Complete Time: 20:17 cp 02/05 18:19 Order name: Urine Dipstick-Ancillary (obtain specimen); Complete Time: 20:36 cp EC:13 Rate is 533 beats/min. Rhythm is regular. MA interval is prolonged at 214 msec. QRS cp interval is prolonged at 106 msec. QT interval is normal. T waves are Inverted in leads III, aVR. Interpreted by me. Reviewed by me. Administered Medications: 18:49 Drug: Keppra 1000 mg Route: IV; Rate: calculated rate; Site: right forearm; ls4 19:30 Follow up: Response: No adverse reaction; IV Status: Completed infusion; IV Intake: rr5 100ml 19:05 Drug: Zofran (Ondansetron) 4 mg Route: IVP; Site: right forearm; ls4 20:36 Follow up: Response: No adverse reaction rr5 19:10 Drug: NS 0.9% 1000 ml Route: IV; Rate: 1000 ml/hr; Site: right forearm; ls4 20:00 Follow up: Response: No adverse reaction; IV Status: Completed infusion; IV Intake: rr5 1000ml Disposition: 22:35 Chart complete. 02/06 07:10 Co-signature as Attending Physician, Lyle Covington MD. [email or web address] Disposition: 02/06/20 22:13 Discharged to Home. Impression: Epilepsy and recurrent seizures, Superficial injury of other parts of head. - Condition is Stable. - Discharge Instructions: Head Injury, Adult, Seizure, Adult. - Medication Reconciliation Form, Thank You Letter, Antibiotic Education, Prescription Opioid Use form. - Follow up: Severo Real MD; When: 2 - 3 days; Reason: seizure disorder. - Problem is an ongoing problem. - Symptoms have improved. Signatures: Dispatcher [employer] EDMS eFlipe Carlson RN RN sg Keli Pelaez RN RN ss Jeff Teran PA PA cp Remedios Tamayo RN RN ls4 Berny Marie RN RN rr5 Lyle Covington MD MD [email or web address] Corrections: (The following items were deleted from the chart) 02/05 22:25 22:13 02/06/2020 22:13 Discharged to Home. Impression: Epilepsy and recurrent seizures; sg Superficial injury of other parts of head. Condition is Stable. Forms are Medication Reconciliation Form, Thank You Letter, Antibiotic Education, Prescription Opioid Use. Follow up: Severo Real; When: 2 - 3 days; Reason: seizure disorder. Problem is an ongoing problem. Symptoms have improved. cp
--- NOTE | 2020-02-08 18:21 | ER ---
Nurse's Notes [facility] Name: Macrina Fernández Age: 29 yrs Sex: Female : 1990 Arrival Date: 02/06/2020 Time: 18:11 Bed 8 Private MD: Diagnosis: Epilepsy and recurrent seizures;Superficial injury of other parts of head Presentation: 02/05 18:12 Chief complaint: EMS states: Seizure last night while in shower, fell backwards and hit head. Hematoma noted to back of head. Pt reports N/V since head injury last night. Pt has a history of seizures. Pt c/o headache and not feeling well. Pt is currently resident at [facility]. Coronavirus screen: Proceed with normal triage. Ebola Screen: Patient denies exposure to infectious person. Patient denies travel to an Ebola-affected area in the 21 days before illness onset. Onset of symptoms is unknown. 18:12 Method Of Arrival: EMS: [facility] 18:12 Initial Sepsis Screen: Does the patient meet any 2 criteria? No. Patient's initial ss sepsis screen is negative. Does the patient have a suspected source of infection? No. Patient's initial sepsis screen is negative. Risk Assessment: Do you want to hurt yourself or someone else? Patient reports no desire to harm self or others. 18:12 Acuity: MIRELLA 3 ss Triage Assessment: 20:37 General: Appears in no apparent distress. comfortable, Behavior is calm, cooperative. 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 - Social history:: Smoking status: Patient reports the use of cigarette tobacco products, denies chronic smoking, but will smoke occasionally, Patient uses street drugs, heroin, marijuana, . Screenin:15 Abuse screen: Denies threats or abuse. Denies injuries from another. ss 21:03 Nutritional screening: No deficits noted. Tuberculosis screening: No symptoms or risk rr5 factors identified. Fall Risk Secondary diagnosis (15 points) seizures, IV access (20 points). Total Bejarano Fall Scale indicates Low Risk Score (25-44 pts). Fall prevention measures have been instituted. Side Rails Up X 2 Placed close to Nursing Station Frequent Obs/Assesments occuring As available Patient and Family Educated on Fall Prevention Program and strategies. Assessment: 18:11 Pain: Complains of pain in occipital area Pain radiates to occipital area and base of ls4 the skull Pain currently is 4 out of 10 on a pain scale. Quality of pain is described as aching. 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 Gait is DID NOT ASSESS . Speech is normal, Facial symmetry appears normal, Pupils are PERRLA, Intact Denies weakness blurred vision dizziness, difficulty swallowing, paresthesias numbness photophobia diplopia, Seizure activity reported prior to arrival. Cardiovascular: Denies chest pain. Respiratory: Airway is patent Respiratory effort is even, unlabored, Respiratory pattern is regular. GI: No deficits noted. No signs and/or symptoms were reported involving the gastrointestinal system. : No deficits noted. No signs and/or symptoms were reported regarding the genitourinary system. Derm: No deficits noted. No signs and/or symptoms reported regarding the dermatologic system. 19:30 Reassessment: Patient appears in no apparent distress at this time. Patient and/or ls4 family updated on plan of care and expected duration. Pain level reassessed. Patient is alert, oriented x 3, equal unlabored respirations, skin warm/dry/pink. 21:42 Reassessment: CALLED LAB AND L[facility]TE IN LAB SAID HE IS HAVING TROUBLE WITH RESULTS AND WILL ls4 POST SOON THEY COMPLETE. 22:23 Reassessment: Patient appears in no apparent distress at this time. Patient is alert, rr5 oriented x 3, equal unlabored respirations, skin warm/dry/pink. discharge instruction given and explained without complaints made. Vital Signs: 18:12 BP 106 / 71; Pulse 64; Resp 16; Temp 98.1(TE); Pulse Ox 98% on R/A; Weight 103.42 kg; ss Height 5 ft. 8 in. (172.72 cm); Pain 8/10; 19:00 BP 112 / 72; Pulse 58; Resp 16; Pulse Ox 100% on R/A; Pain 0/10; ls4 20:23 BP 96 / 52; Pulse 58; Resp 16; Pulse Ox 99% on R/A; Pain 0/10; ls4 21:01 BP 113 / 65; Pulse 56; Resp 14; Pulse Ox 100% on R/A; Pain 0/10; ls4 22:21 BP 113 / 75; Pulse 61; Resp 17; Temp 98; Pulse Ox 99% ; rr5 18:12 Body Mass Index 34.67 (103.42 kg, 172.72 cm) ss Luis Enrique Coma Score: 18:12 Eye Response: spontaneous(4). Verbal Response: oriented(5). Motor Response: obeys ss commands(6). Total: 15. ED Course: 18:11 Patient arrived in ED. ss 18:12 Arm band placed on right wrist. ss 18:15 Patient has correct armband on for positive identification. Bed in low position. Call ss light in reach. 18:19 Jeff Teran PA is PHCP. cp 18:19 Kemal Montoya MD is Attending Physician. cp 18:29 Triage completed. ss 18:53 Remedios Tamayo, LUIS is Primary Nurse. ls4 18:58 CT Head C Spine In Process Unspecified. EDMS 19:19 Lyle Covington MD is Attending Physician. cp 19:30 Appears to be sleeping. ls4 19:30 Seizure precautions initiated. rr5 19:30 product line manager on. Pulse ox on. NIBP on. Warm blanket given. rr5 19:30 EKG done, by ED staff, reviewed by Jeff EDUARDO. rr5 19:30 No provider procedures requiring assistance completed. Patient maintains SpO2 ls4 saturation greater than 95% on room air. 19:40 Inserted saline lock: 20 gauge in right forearm, using aseptic technique. ,using rr5 aseptic technique. inserted by remedios SMITH. 22:12 Severo Real MD is Referral Physician. cp 22:21 IV discontinued, intact, bleeding controlled, No redness/swelling at site. Pressure rr5 dressing applied. Administered Medications: 18:49 Drug: Keppra 1000 mg Route: IV; Rate: calculated rate; Site: right forearm; ls4 19:30 Follow up: Response: No adverse reaction; IV Status: Completed infusion; IV Intake: rr5 100ml 19:05 Drug: Zofran (Ondansetron) 4 mg Route: IVP; Site: right forearm; ls4 20:36 Follow up: Response: No adverse reaction rr5 19:10 Drug: NS 0.9% 1000 ml Route: IV; Rate: 1000 ml/hr; Site: right forearm; ls4 20:00 Follow up: Response: No adverse reaction; IV Status: Completed infusion; IV Intake: rr5 1000ml Intake: 19:30 IV: 100ml; Total: 100ml. rr5 20:00 IV: 1000ml; Total: 1100ml. rr5 Outcome: 22:13 Discharge ordered by . nery 22:21 Discharged to [facility] rr5 22:21 Condition: stable 22:21 Discharge instructions given to patient, Instructed on discharge instructions, follow up and referral plans. Demonstrated understanding of instructions, follow-up care. 22:25 Patient left the ED. sg Signatures: Dispatcher [employer] EDMS Felipe Carlson RN RN sg Keli Pelaez RN RN Jeff Gandara PA PA Remedios Atwood RN RN ls4 Berny Marie RN RN rr5
== END 2020-02-06 22:25 | disposition home or self-care (01) ==
LOC: ER 18:10
DX: S00.80XA Unspecified superficial injury of other part of head, initial encounter (principal); W19.XXXA Unspecified fall, initial encounter; Y93.E1 Activity, personal bathing and showering; Y92.199 Unspecified place in other specified residential institution as the place of occurrence of the external cause; F32.9 Major depressive disorder, single episode, unspecified; Z72.0 Tobacco use; Z88.1 Allergy status to other antibiotic agents; Z91.048 Other nonmedicinal substance allergy status
CPT/HCPCS: 36415; 70450; 72125; 80048; 80076; 80307; 80320; 80329; 81003; 81025; 85025; 85610; 85730; 93005; 96365; 96375; 99285; J1953; J2405; J7030